=== PATIENT | female | born 1965 | race Caucasian/White ===

== ENCOUNTER → 2017-12-02 07:19 | Outpatient (CLI) | payer BC, SELFPAY ==
--- NOTE | 2017-12-02 07:25 | CT_ITS ---
STUDY: CT ABDOMEN AND PELVIS WITHOUT CONTRAST REASON FOR EXAM: Female, 52 years old. The patient has a history of retroperitoneal lymphadenopathy. Leg pain and swelling. Abdominal cramping. RADIATION DOSAGE (If Supplied By Facility): CTDIvol = ( 16.96 ) mGy, DLP = ( 826.46 ) mGycm TECHNIQUE: Transaxial images were obtained from the dome of the diaphragm to the symphysis pubis without oral contrast, and without intravenous contrast. Sagittal and coronal images were reconstructed. Individualized dose optimization techniques were used for this CT. COMPARISON: Comparison is made with prior study dated June 05, 2017. FINDINGS: Minimal increased markings in the lingular segment of the left upper lobe and right middle lobe suggestive of scarring. Coronary artery calcification. Normal liver. There are surgical clips in the gallbladder fossa consistent with a prior cholecystectomy. Normal spleen. Normal pancreas. Normal bilateral adrenal glands. Normal right kidney. Normal left kidney. Normal visualized stomach. Normal small intestine. Normal colon. The appendix is visualized and appears normal. There is scattered atherosclerotic calcification of the abdominal aorta, without a demonstrated aneurysm. Normal inferior vena cava. There is borderline retroperitoneal lymphadenopathy with enlarged nodes no greater than 10mm in the short axis diameter. Stable mild degree of increased markings in the mesenteric fat at the root of the mesentery. This is unchanged. Normal urinary bladder. There is a small umbilical hernia containing fat. There are mild degenerative changes of the visualized lumbar spine. CT/Abdomen/Pelvis without Cont IMPRESSION: Fatty infiltration of liver. Stable examination. Electronically Signed: Aamir Andres MD at 13:25 EDT Tel [phone], Service support ,
== END ==
PROVIDERS: Family Provider Nurse Practitioner; PCP Nurse Practitioner; Visit Provider Nurse Practitioner
DX: R59.0 Localized enlarged lymph nodes (principal)
CPT/HCPCS: 74176

== ENCOUNTER → 2018-05-18 16:43 | Outpatient (CLI) | payer BC, SELFPAY | PROVIDERS: Family Provider Nurse Practitioner; PCP Nurse Practitioner; Visit Provider Nurse Practitioner Gerontology | DX: M25.511 Pain in right shoulder (principal) | CPT/HCPCS: 73030 ==

== ENCOUNTER → 2018-07-07 12:22 | Outpatient (CLI) | payer BC, SELFPAY ==
--- NOTE | 2018-07-07 12:34 | EKG12_ITS ---
Test Reason : PRE OP Blood Pressure : / mmHG Vent. Rate : 070 BPM Atrial Rate : 070 BPM P-R Int : 180 ms QRS Dur : 078 ms QT Int : 408 ms P-R-T Axes : 054 010 057 degrees QTc Int : 440 ms Normal sinus rhythm with sinus arrhythmia Low voltage QRS Cannot rule out Anterior infarct , age undetermined Abnormal ECG Confirmed by AMEBR CROCKETT, ARLETH ([id number]), dictionary editor WILFRID MCKEON ([id number]) on 07/09/2018 11:35:29 AM Referred By: Simone Bajwa Confirmed By:ARLETH CLARK MD
[2018-07-07 13:16] LABS: Hematocrit 38.4 % (37-47); Hemoglobin 12.4 g/dl (12.0-15.0); Mean Corp Hgb Conc 32.3 g/gl (32-36); Mean Corpuscular Hgb 30.2 pg (27.0-32.0); Mean Corpuscular Volume 93.7 fL (81-99); Platelet Count 315 K/mm3 (150-450); RBC Distribution Width CV 14.2 % (11.6-14.6); RBC Distribution Width SD 48.4 fl (35.1-43.9); White Blood Count 7.5 K/mm3 (4.4-11.0)
[2018-07-07 13:21] LABS: Scan Indicated on CBC? Y/N NO
[2018-07-07 14:20] LABS: Anion Gap 8 (5-15); BUN 13 mg/dL (7-18); BUN/Creat Ratio 16.4 RATIO (10-20); Calcium,Total 9.6 mg/dL (8.5-10.1); Chloride 103 mmol/L (98-107); Creatinine, Serum 0.79 mg/dL (0.55-1.02); EST Glomerular Filtration Rate 80 mL/min (>60); Est Glom Filt Rate - Afr Amer 97 mL/min (>60); Glucose 82 mg/dL (74-106); Potassium 4.1 mmol/L (3.5-5.1); Sodium Level 141 mmol/L (136-145)
== END ==
PROVIDERS: Family Provider Nurse Practitioner; PCP Nurse Practitioner; Referring Provider Physician Assistant; Visit Provider Physician Assistant
DX: Z01.818 Encounter for other preprocedural examination (principal); Z01.810 Encounter for preprocedural cardiovascular examination
CPT/HCPCS: 36415; 80048; 85027; 93005

== ENCOUNTER → 2018-08-27 16:20 | Outpatient (CLI) | payer BC, SELFPAY | PROVIDERS: Family Provider Nurse Practitioner; PCP Nurse Practitioner; Referring Provider Nurse Practitioner Adult Health; Visit Provider Nurse Practitioner Adult Health | DX: R82.998 Other abnormal findings in urine (principal) | CPT/HCPCS: 87077; 87086; 87088 ==

== ENCOUNTER → 2018-11-04 17:35 | Outpatient (CLI) | payer BC, SELFPAY ==
--- NOTE | 2018-11-04 18:08 | RAD_ITS ---
STUDY: X-RAY CHEST REASON FOR EXAM: Female, 53 years old. Asthma, cough TECHNIQUE: Frontal and lateral views COMPARISON: August 08, 2014 FINDINGS: The lungs are expanded. There is a left upper lobe granuloma. Normal size heart. Normal mediastinum and jeremi. Normal visualized pulmonary arteries. Normal visualized aortic arch and descending thoracic aorta. Normal visualized thoracic spine. Normal visualized ribs, clavicles, and shoulders. There is no demonstrated abnormality of the visualized soft tissue structures of the upper abdomen. RAD/Chest PA and Lateral IMPRESSION: Stable left upper lobe granuloma. Electronically Signed: Rusty Wolff DO at 19:48 EST Tel [phone], Service support ,
== END ==
PROVIDERS: Family Provider Nurse Practitioner; PCP Nurse Practitioner; Referring Provider Internal Medicine; Visit Provider Internal Medicine
DX: R05 Cough (principal); J44.1 Chronic obstructive pulmonary disease with (acute) exacerbation
CPT/HCPCS: 71046; 87807

== ENCOUNTER 2018-11-13 08:37 | Emergency (ER) | payer BC, SELFPAY ==
[2018-11-13 08:38] VITALS: BP 136/79; PULSE 89; RESP 18; TEMP 37.2; O2SAT 99; BMI 39.6
--- NOTE | 2018-11-13 08:49 | CT_ITS ---
STUDY: CT MAXILLOFACIAL SINUSES REASON FOR EXAM: Female, 53 years old. Facial pain. History of prior sinus surgery. RADIATION DOSAGE (If Supplied By Facility): CTDIvol = ( 33.06 ) mGy, DLP = ( 809.06 ) mGycm TECHNIQUE: The patient was scanned in a multi detector CT scanner. High resolution axial imaging was performed without the administration of intravenous contrast material. Sagittal and coronal images were reconstructed. Individualized dose optimization techniques were used for this CT. COMPARISON: Comparison is made with prior study dated September 29, 2014. FINDINGS: FRONTAL SINUSES: Normal aeration, without mucosal inflammatory disease. ETHMOIDAL SINUSES: There is opacification of the posterior aspect of the right ethmoid sinus. Mild degree of mucosal thickening of the left ethmoid sinus and anterior aspect of the right ethmoid sinus. MAXILLARY SINUSES: Normal aeration, without mucosal inflammatory disease. There is evidence of prior resection of the medial sánchez of both maxillary sinuses. SPHENOIDAL SINUSES: Soft tissue prominence in the anterior aspect of the sphenoid sinus on the right side. There is patency of the bilateral maxillary infundibuli with normal uncinate processes, ethmoid bullae, and hiatus semilunaris. Normal bilateral middle turbinates. Normal bilateral inferior turbinates. Normal midline nasal septum. There is patency of the bilateral nasal airways. The visualized osseous structures are normal. The visualized bilateral orbital contents are normal. CT/Sinus/Facial Bone IMPRESSION: Partial opacification of the posterior aspect of the right ethmoid sinus. This has progressed as compared to prior study. This may represent mucosal retention cyst or mucocele. There is expansion of the sinus. Partial opacification of the anterior aspect of the right sphenoid sinus. Electronically Signed: Aamir Andres MD at 10:29 EST , Service support ,
--- NOTE | 2018-11-13 08:49 | EKG12_ITS ---
Test Reason : DYSRHYTHMIA Blood Pressure : / mmHG Vent. Rate : 077 BPM Atrial Rate : 077 BPM P-R Int : 176 ms QRS Dur : 084 ms QT Int : 370 ms P-R-T Axes : 017 046 044 degrees QTc Int : 418 ms Normal sinus rhythm Low voltage QRS Borderline ECG Confirmed by KISHAN CROCKETT, AMRIK ([id number]), editor magazine RICARDA PASCUAL ([id number]) on 11/17/2018 4:40:30 PM Referred By: Riri Bansal Confirmed By:AMRIK HOLLEY MD
[2018-11-13 09:17] LABS: Absolute Lymphocyte Count 2.51 X10^3/ul (0.83-4.51); Absolute Neutrophil Count 6.6 X10^3/uL (2.0-7.7); Basophil# 0.02 X10^3/uL; Basophil% 0.2 % (0-1); Eosinophil# 0.09 X10^3/uL; Eosinophils% 0.9 % (0-5); Hematocrit 40.3 % (37-47); Lymphocyte # 2.51 X10^3/ul (4.0); Lymphocyte % 25.5 % (19-41); Mean Corp Hgb Conc 32.3 g/gl (32-36); Mean Corpuscular Hgb 30.4 pg (27.0-32.0); Mean Corpuscular Volume 94.2 fL (81-99); Mean Platelet Vol. 9.9 fl (6.2-12.0); Monocyte# 0.51 X10^3/uL; Monocyte% 5.2 % (0-10); Neutrophil # 6.62 X10^3/uL (2.7-7.7); Neutrophil % 67.1 % (47-70); POSITIVE COUNT NO; POSITIVE DIFFERENTIAL NO; POSITIVE MORPHOLOGY NO; Platelet Count 275 K/mm3 (150-450); RBC Distribution Width SD 51.1 fl (35.1-43.9); Red Blood Count 4.28 M/mm3 (4.2-5.4); White Blood Count 9.9 K/mm3 (4.4-11.0)
[2018-11-13 09:24] LABS: Anion Gap 8 (5-15); BUN 16 mg/dL (7-18); BUN/Creat Ratio 18.7 RATIO (10-20); Calcium,Total 8.5 mg/dL (8.5-10.1); Chloride 106 mmol/L (98-107); Creatinine, Serum 0.85 mg/dL (0.55-1.02); EST Glomerular Filtration Rate 74 mL/min (>60); Est Glom Filt Rate - Afr Amer 89 mL/min (>60); Estimated Creatinine Clearance 62.59 ml/min; Glucose 91 mg/dL (74-106); Potassium 3.5 mmol/L (3.5-5.1); Sodium Level 141 mmol/L (136-145)
--- NOTE | 2018-11-13 09:28 | ED.DCSUM_ITS ---
- ER Visit Summary Date of Service: 11/13/18 Chief Complaint: Shortness of breath, facial pain History of Present Illness: The patient is a 53 F with history of asthma presents to the emergency department shortness of breath. Patient has been evaluated by her primary care multiple times over the past few weeks for this. She has been on prednisone and doxycycline. She feels like her symptoms are not improving. States especially at night, she will have worsening cough. She has had productive sputum. She had increasing nasal drainage and drainage in her posterior oropharynx. She has been scheduled to have an outpatient CT of her sinuses, but due to insurance reasons, cannot be improved. She states that her dyspnea has been worsening. She is been trying a nebulized treatments with little improvement. Physical Examination: Vital signs reviewed General: Well-nourished, well-developed Head: Normocephalic, atraumatic Eyes: Pupils equal and reactive, extraocular muscles intact Neck, supple, no lymphadenopathy Heart: Regular rate and rhythm Respiratory: No distress, clear bilaterally Abdomen: Soft, nontender, nondistended, no peritoneal signs Back: Nontender Extremities: Nontender, no edema, no cords Skin: Normal color no rash Neuro: Alert and oriented, no focal or lateralizing deficits Test Results: [] Emergency Department Course and Treatment: IV was established. Patient was given nebulized breathing treatments and steroids. Her chest x-ray was unremarkable. There is some calcified granulomatous disease, but no focal infiltrate. CT of the sinuses does demonstrate sinusitis. I did have a long discussion with the patient. I do feel this is likely the cause of her persistent drainage and cough. I am going to start her on Augmentin. She is tolerating this before in the past. At this time, she is not hypoxic, tachypnea, and has an otherwise unremarkable workup I do feel that she is safe for outpatient therapy. Treatment Plan: [] Disposition: Discharge Impression: 1. Acute sinusitis This note was generated with [employer] dictation software. It may contain incorrect words, spelling, and punctuation that were not noted in review of the chart prior to signing ED Disposition - Plan for ED Patient: Disposition: Home or Assisted Living Instructions: ED Upper Resp Infec Abx Tx Prescriptions: Ondansetron [Zofran Odt] 4 mg PO Q8H PRN PRN #10 tab PRN Reason: Nausea Amox/Clavulanate Tablet [Augmentin Tablet] 875 mg PO Q12H #20 tab Referrals: Polina Chow, CERTIFIED PHARMACY TECHNICIAN-C [Primary Care Provider] -
--- NOTE | 2018-11-13 09:30 | RAD_ITS ---
STUDY: X-RAY CHEST REASON FOR EXAM: Female, 53 years old. Cough and shortness of breath. TECHNIQUE: PA and lateral views of the chest. COMPARISON: Comparison is made with prior study dated November 04, 2018. FINDINGS: Calcified old granulomatous disease. Hyperinflation. Stable mild degree of increased markings in the lingular segment of the left upper lobe suggestive of a mild degree of scarring. There is no demonstrated pleural abnormality. Normal size heart. Normal mediastinum and jeremi. Normal visualized pulmonary arteries. Normal visualized aortic arch and descending thoracic aorta. Normal visualized thoracic spine. Normal visualized ribs, clavicles, and shoulders. There is no demonstrated abnormality of the visualized soft tissue structures of the upper abdomen. RAD/Chest PA and Lateral IMPRESSION: Findings suggestive of mild degree of scarring in the lingular segment of the left upper lobe. Electronically Signed: Aamir Andres MD at 10:30 EST , Service support ,
[2018-11-13 09:40] VITALS: PULSE 80; RESP 16
[2018-11-13] MEDS: Albuterol 2.5 MG/3 ML VIAL.NEB. INHALATION (09:43)
[2018-11-13] MEDS: Ipratropium/Albuterol Sulfate 3 ML AMPUL.NEB INHALATION (09:43)
[2018-11-13 11:19] VITALS: BP 118/73; PULSE 69; RESP 15; O2SAT 98
== END 2018-11-13 11:20 | disposition home or self-care (01) ==
LOC: ED 08:58
PROVIDERS: Emergency Provider Emergency Medicine; Family Provider Nurse Practitioner; PCP Nurse Practitioner
DX: J01.90 Acute sinusitis, unspecified (principal); R06.02 Shortness of breath
CPT/HCPCS: 70486; 71046; 80048; 85025; 93005; 94640; 99284; A4216

== ENCOUNTER → 2018-11-17 15:57 | Outpatient (CLI) | payer BC, SELFPAY ==
[2018-11-13 08:38] VITALS: BMI 39.6
[2018-11-17 18:15] LABS: M R Staph aureus DNA By PCR Negative (Negative); Probe Check PASS; Specimen Processing Control PASS
== END ==
PROVIDERS: Family Provider Nurse Practitioner; PCP Nurse Practitioner; Referring Provider Nurse Practitioner; Visit Provider Nurse Practitioner
DX: Z20.818 Contact with and (suspected) exposure to other bacterial communicable diseases (principal)
CPT/HCPCS: 87641

== ENCOUNTER → 2018-12-09 09:06 | Outpatient (CLI) | payer BC, SELFPAY ==
[2018-11-13 08:38] VITALS: BMI 39.6
[2018-12-09 10:10] LABS: Absolute Lymphocyte Count 2.55 X10^3/ul (0.83-4.51); Basophil# 0.06 X10^3/uL; Basophil% 0.7 % (0-1); Eosinophil# 0.23 X10^3/uL; Eosinophils% 2.7 % (0-5); Hematocrit 40.3 % (37-47); Hemoglobin 12.8 g/dl (12.0-15.0); Lymphocyte # 2.55 X10^3/ul (4.0); Lymphocyte % 30.1 % (19-41); Mean Corp Hgb Conc 31.8 g/gl (32-36); Mean Corpuscular Hgb 30.7 pg (27.0-32.0); Mean Corpuscular Volume 96.6 fL (81-99); Mean Platelet Vol. 9.9 fl (6.2-12.0); Monocyte# 0.56 X10^3/uL; Monocyte% 6.6 % (0-10); Neutrophil # 5.04 X10^3/uL (2.7-7.7); Neutrophil % 59.5 % (47-70); Platelet Count 356 K/mm3 (150-450); RBC Distribution Width CV 14.3 % (11.6-14.6); RBC Distribution Width SD 49.3 fl (35.1-43.9); Red Blood Count 4.17 M/mm3 (4.2-5.4); White Blood Count 8.5 K/mm3 (4.4-11.0)
[2018-12-09 10:12] LABS: POSITIVE COUNT NO; POSITIVE DIFFERENTIAL NO; POSITIVE MORPHOLOGY NO
== END ==
PROVIDERS: Family Provider Nurse Practitioner; PCP Nurse Practitioner; Referring Provider Specialist; Visit Provider Specialist
DX: J45.909 Unspecified asthma, uncomplicated (principal)
CPT/HCPCS: 36415; 85025

== ENCOUNTER 2019-02-09 17:32 | Emergency (ER) | payer BC, SELFPAY ==
[2019-02-09 17:32] VITALS: BP 129/83; PULSE 90; RESP 20; TEMP 36.3; O2SAT 95; BMI 39.8
--- NOTE | 2019-02-09 18:07 | ED.DCSUM_ITS ---
- ER Visit Summary Date of Service: 02/09/19 Chief Complaint: Cough of green sputum with asthma flare History of Present Illness: The patient is a 53 F history of asthma, depression and fibromyalgia. Patient states last several days she has had a cough of greenish sputum with shortness of breath and wheezing. Initially had a fever that is since resolved. Yesterday she saw her primary care provider nurse practitioner Polina Chow and was started on prednisone along with getting a steroid shot in the office along with a Z-Luis and is already on inhalers and aerosol treatments. She denies any chest pain. No hemoptysis. No history of DVT or PE. No risk factors. Physical Examination: Middle-aged female. Vital signs are stable afebrile pulse ox 95% room air no signs of hypoxia. No distress. HEENT exam unremarkable moist weeks membranes. Neck nontender no lymphadenopathy no JVD. Lungs dry cough. Currently minimal expiratory wheezes. No rales or rhonchi. Equal symmetrical. Decent and equal air movement. Heart regular rate and rhythm no murmur rate about 90. Abdomen soft nontender normal bowel sounds no peritoneal signs. Moving all 4 extremities. Calves are nontender without edema. Neurologically she is awake and alert. Test Results: Clinically I do not feel the patient has pneumonia. She and I discussed chest x-ray I do not feel is necessary and she is comfortable not getting one. Emergency Department Course and Treatment: Continue her current therapy. She is already on antibiotics Z-Luis. She is already on prednisone. She has an inhaler and nebulizer treatment at home. Treatment Plan: I will write her for albuterol treatments for her nebulizer as needed. Follow-up if not improving return if worse. Disposition: Discharge Impression: Asthmatic bronchitis This note was generated with [employer] dictation software. It may contain incorrect words, spelling, and punctuation that were not noted in review of the chart prior to signing ED Disposition - Plan for ED Patient: Referrals: Polina Chow, REGISTERED NURSE PRACTITIONER-C [Primary Care Provider] -
--- NOTE | 2019-02-09 18:07 | ED.DEP ---
ED Disposition - Plan for ED Patient: Disposition: Home or Assisted Living Instructions: ED Bronchitis Asthmatic Prescriptions: Albuterol Aerosols [Ventolin Aerosols] 2.5 mg INHALATION Q2H PRN PRN 5 Days #20 vial.neb. PRN Reason: Wheezing Referrals: Polina Chow, ROAD MACHINERY INSPECTOR-C [Primary Care Provider] - 1 Week if not improving Additional Instructions: Continue your current treatments. Inhaler 1 to 2 puffs every 2-4 hours as needed. Nebulizers every 1-2 hours as needed. Return if feeling worse. Continue your steroids and antibiotic. Should progressively start feeling better follow-up with your doctor if not improving in 1 week.
--- NOTE | 2019-02-09 18:11 | DCINST.ED_ITS ---
ED Disposition - Plan for ED Patient: Disposition: Home or Assisted Living Instructions: ED Bronchitis Asthmatic Prescriptions: Albuterol Aerosols [Ventolin Aerosols] 2.5 mg INHALATION Q2H PRN PRN 5 Days #20 vial.neb. PRN Reason: Wheezing Referrals: Polina Chow, SEO EXECUTIVE-C [Primary Care Provider] - 1 Week if not improving Additional Instructions: Continue your current treatments. Inhaler 1 to 2 puffs every 2-4 hours as needed. Nebulizers every 1-2 hours as needed. Return if feeling worse. Continue your steroids and antibiotic. Should progressively start feeling better follow-up with your doctor if not improving in 1 week.
[2019-02-09 18:17] VITALS: O2SAT 96
== END 2019-02-09 18:17 | disposition home or self-care (01) ==
LOC: ED 18:16
PROVIDERS: Emergency Provider Emergency Medicine; Family Provider Nurse Practitioner; PCP Nurse Practitioner
DX: J45.909 Unspecified asthma, uncomplicated (principal); F32.9 Major depressive disorder, single episode, unspecified; M79.7 Fibromyalgia; Z79.899 Other long term (current) drug therapy
CPT/HCPCS: 99282

== ENCOUNTER 2019-06-22 17:13 | Emergency (ER) | payer BC, SELFPAY ==
[2019-06-22 17:13] VITALS: BP 161/100; PULSE 71; RESP 16; TEMP 36.6; O2SAT 99; BMI 39.9
--- NOTE | 2019-06-22 17:36 | ED.VIS.GEN ---
History of Present Illness Chief Complaint: Back Detail of Chief Complaint: Back pain Informant: Patient Onset: Days Current Severity: Moderate Maximum Severity: Moderate Narrative: Patient presents with low back pain. She states she woke last Friday morning, 4 days ago, with low back pain. It would intermittently radiate down the lateral portion of her thighs. It is worse with movement. She does note recent foot pain and she believes her gait has been altered because of this. She believes this caused her back pain. There was no fall or direct trauma. She reports having a similar episode of back pain 2 years ago. Imaging at that time revealed stenosis and arthritis. She went through physical therapy at that time. She is been trying to do some of her physical therapy exercises the past couple days without improvement. She has tried Tylenol and ibuprofen at home. She did take 1 tab of oxycodone that she had leftover. Past Medical History - Allergies and Home Meds Allergies/Adverse Reactions: Allergies No Known Allergies Allergy (Verified 06/22/19 17:14) Primary Care Physician: Polina Chow NP-C [Primary Care Provider] - 1 Week if not improving Surgical History: cholecystectomy, tonsillectomy, fusion in the leg Smoking Status: Former smoker Review of Systems General: Denies: Chills, Fever Eyes: Denies: Visual changes - bilaterally ENT: Denies: Bilateral ear pain Cardiovascular: Denies: Chest pain Respiratory: Denies: Dyspnea Gastrointestinal: Denies: Abdominal pain, Nausea, Vomiting, Diarrhea Genitourinary: Denies: Dysuria, Frequency Musculoskeletal: Reports: Back pain, Extremity Pain - Right foot pain Neurological: Denies: Parasthesia Hematologic: Denies: Easy bruising, Easy bleeding Allergy: Denies: Uticaria Physical Exam Vital Signs/Narrative: Vital Signs Temp Pulse Resp BP Pulse Ox 06/22/19 17:13 97.8 F 71 16 161/100 H 99 Inital Vital Signs reviewed: Yes General: Well nourished, Well developed Head: Normocephalic ENT: Moist mucous membranes Neck: Supple Cardiovascular: Regular rate, Regular rhythm Respiratory: No distress, CTA bilaterally Abdomen: Soft, Nontender Back: - - Patient has no midline thoracic or lumbar tenderness. She has mild tenderness in the low lumbar paraspinals and over the sacrum. No overlying skin changes. Normal strength and sensation is noted. Strong distal pulses noted throughout. Skin: Normal color, No rash Neurological: Alert, Oriented x3, Normal Strength, Normal Sensation Psychological: Normal affect Diagnostic/Tx/Re-eval - Medical Decision Making Patient was given naproxen, Flexeril, and [place] here. On repeat evaluation she reports some improvement in her symptoms. She was reevaluated 1 hour after the p.o. meds. I advised her that they would continue to become more effective. She is given prescriptions for the same. She was encouraged to try to get the pain under control initially and then follow-up with her physical therapy exercises. If symptoms do not improve she may need to be evaluated by physical therapy again. She voices understanding and agreement. Impression: Back strain with paraspinal spasm ED Disposition - Plan for ED Patient: Disposition: Home or Assisted Living Diagnosis: Back pain Instructions: Back Sprain/Strain Prescriptions: cycloBENZAPRine HCl [Flexeril] 10 mg PO TID PRN #20 tab PRN Reason: Muscle Spasm Prescription Printed Naproxen [Naprosyn] 500 mg PO BID PRN #14 tab PRN Reason: Pain Score 1-10/10 Prescription Printed Hydrocodone Bitart/Apap 5-325 [[place] 5MG-325MG] 1 tab PO Q6H PRN PRN 3 Days #10 tab PRN Reason: Pain Prescription Printed Referrals: Polina Chow NP-C [Primary Care Provider] - 1 Week if not improving
[2019-06-22] MEDS: cycloBENZAPRine HCl 10 MG Tablet PO (17:42)
[2019-06-22] MEDS: HYDROcodone Bitartrate/Apap 5/325 Tablet PO (17:42)
[2019-06-22] MEDS: Naproxen 500 MG Tablet PO (17:42)
== END 2019-06-22 19:13 | disposition home or self-care (01) ==
PROVIDERS: Emergency Provider Emergency Medicine; Family Provider Nurse Practitioner; PCP Nurse Practitioner
DX: S39.012A Strain of muscle, fascia and tendon of lower back, initial encounter (principal); M62.830 Muscle spasm of back; X58.XXXA Exposure to other specified factors, initial encounter; Y93.9 Activity, unspecified; Y92.9 Unspecified place or not applicable; Z87.891 Personal history of nicotine dependence
CPT/HCPCS: 99283

== ENCOUNTER → 2019-10-01 13:45 | Outpatient (CLI) | payer BC, SELFPAY ==
--- NOTE | 2019-10-01 13:48 | RAD_ITS ---
HISTORY: SINUS PRESSURE RIGHT MORE THAN LEFT. HX OF ASTHMA EXAMINATION/TECHNIQUE: XR Sinuses Paranasal Min 3 Views: COMPARISON: CT scan of the facial bones from November 13, 2018 FINDINGS: There is no significant mucosal thickening. There are no air-fluid levels. The regional bones are grossly intact. Fluid collection within the right ethmoid air cells seen on the CT scan is not identified. Maxillary sinus antrectomies are not perceived that were seen on the CT scan RAD/Sinuses min 3 Views IMPRESSION: Negative sinus series. at 0613 Reported and signed by: Demetrio Tyler MD Electronically Signed: Demetrio Tyler MD at 6:12 EST Tel , Service support ,
== END ==
PROVIDERS: Family Provider Nurse Practitioner; PCP Nurse Practitioner; Referring Provider Nurse Practitioner; Visit Provider Nurse Practitioner
DX: R05 Cough (principal)
CPT/HCPCS: 70220

== ENCOUNTER → 2019-10-19 13:46 | Outpatient (CLI) | payer BC, SELFPAY ==
--- NOTE | 2019-10-19 13:51 | RAD_ITS ---
STUDY: X-RAY CHEST REASON FOR EXAM: Female, 54 years old. Cough. History of asthma. TECHNIQUE: PA and lateral views of the chest. COMPARISON: None. FINDINGS: The lungs are clear and expanded. There is a stable calcified granuloma right upper lobe. There is no demonstrated pleural abnormality. Normal size heart. Normal mediastinum . There is prominent dense jeremi suggesting calcified lymph nodes. Normal visualized pulmonary arteries. Normal visualized aortic arch and descending thoracic aorta. There are diffuse degenerative changes of the visualized thoracic spine. Normal visualized ribs, clavicles, and shoulders. There is no demonstrated abnormality of the visualized soft tissue structures of the upper abdomen. RAD/Chest PA and Lateral IMPRESSION: Old granulomatous disease without acute cardiopulmonary process or major interval changes Electronically Signed: Napoleon Castillo DO at 19:07 EST Tel [phone], Service support ,
== END ==
PROVIDERS: PCP Nurse Practitioner; Referring Provider Specialist; Visit Provider Specialist
DX: R05 Cough (principal)
CPT/HCPCS: 71046

== ENCOUNTER 2019-12-10 12:00 | Outpatient (RCR) | payer BC, SELFPAY ==
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
--- NOTE | 2020-06-15 15:19 | HP.PT.NRP ---
MITRA DELANEY was seen in my office for initial evaluation on 12/01/19. The following Plan of Care was established for this patient: Initial Frequency: 2-3x /Week Initial Duration: 4-6 Weeks Patient/Client Instruction: Educate patient on: Condition, Plan of Care, Risk Factors, Benefits of Fitness Program For the Purpose of:: To improve self management Therapeutic Exercise to Include: Strength training, Body mechanics, Postural training, Flexibilty training, Neuromotor development, In an aquatic setting, Dynamic Lumbar Stabilization For the Purpose of:: To decrease pain, To increase ROM, To improve muscle performance and motor function, To increase tolerance to activity/condition/position, To improve ability of physical actions for home/community/work/leisure This patient was last seen in our office . Pertinent comments regarding their Physical therapy will appear below: This patient has not returned to Physical Therapy and is appropriate to return to MD for further follow-up as needed. At this point I will be discontinuing this patient from physical therapy. I would be happy to see this patient again in the future if found appropriate by the physician. Thank you! Sabine Phelps, PT, Cert MDT
== END 2019-12-10 19:00 | disposition home or self-care (01) ==
LOC: PT 12:00
PROVIDERS: PCP Nurse Practitioner; Referring Provider Nurse Practitioner Family
DX: M79.7 Fibromyalgia (principal); M51.17 Intervertebral disc disorders with radiculopathy, lumbosacral region; M47.27 Other spondylosis with radiculopathy, lumbosacral region; M48.07 Spinal stenosis, lumbosacral region; M51.26 Other intervertebral disc displacement, lumbar region; M46.96 Unspecified inflammatory spondylopathy, lumbar region
CPT/HCPCS: 97112; 97113; 97162

== ENCOUNTER 2020-04-19 02:59 | Emergency (ER) | payer BC, SELFPAY ==
[2020-04-19 03:02] VITALS: BP 137/80; PULSE 75; RESP 16; TEMP 36.6; O2SAT 98; BMI 40.5
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
[2020-04-19] MEDS: predniSONE 20 MG Tablet 40 MG PO (03:27)
[2020-04-19] MEDS: DiphenhydrAMINE 25 MG Capsule 50 MG PO (03:27)
== END 2020-04-19 03:51 | disposition home or self-care (01) ==
LOC: ED 03:25
PROVIDERS: Emergency Provider Emergency Medicine; PCP Nurse Practitioner
DX: L50.6 Contact urticaria (principal); E03.9 Hypothyroidism, unspecified; F32.9 Major depressive disorder, single episode, unspecified; M79.7 Fibromyalgia; K21.9 Gastro-esophageal reflux disease without esophagitis; M19.90 Unspecified osteoarthritis, unspecified site; J45.909 Unspecified asthma, uncomplicated; Z79.899 Other long term (current) drug therapy
CPT/HCPCS: 99283

== ENCOUNTER 2020-04-22 16:07 | Emergency (ER) | payer BC, SELFPAY ==
[2020-04-22 16:07] VITALS: BP 159/109; PULSE 80; RESP 17; TEMP 36.2; O2SAT 95; BMI 38.9
--- NOTE | 2020-04-22 16:26 | ED.DCSUM_ITS ---
- ER Visit Summary Date of Service: 04/22/20 Chief Complaint: Headache History of Present Illness: The patient is a 54 F with a headache that started when she woke up today. The pain is over the right side of her head. Worse with light and noise. The pain is severe. History of the same with migraines. She took her home medication with no relief. Denies trauma or any inciting factors. Denies any new or different symptoms. Physical Examination: Afebrile and vital signs unremarkable. Alert and oriented. Tearful. HEENT exam unremarkable. Neck shows good range of motion. Heart regular. Lungs clear. Moves all extremities with good strength and sensation. Test Results: None indicated Emergency Department Course and Treatment: Patient was treated with Compazine, Benadryl, and Toradol. On reevaluation, pain is 5 out of 10. Patient would like to go home. She climbed further meds or further observation in the ED. Return for any new or worsening issues. Treatment Plan: As above Disposition: Discharge Impression: Headache This note was generated with [employer] dictation software. It may contain incorrect words, spelling, and punctuation that were not noted in review of the chart prior to signing ED Disposition - Plan for ED Patient: Referrals: Polina Chow, KRISS-C [Primary Care Provider] -
[2020-04-22] MEDS: proCHLORPERazine 10 MG/2 ML Vial IV (16:42)
[2020-04-22] MEDS: Ketorolac 30 MG/ML Syringe IV (16:42)
[2020-04-22] MEDS: DiphenhydrAMINE 50 MG/ML Syringe IV (16:43)
--- NOTE | 2020-04-22 17:08 | ED.DEP ---
ED Disposition - Plan for ED Patient: Instructions: ED, Migraine (Classical) Referrals: Polina Chow, KRISS-C [Primary Care Provider] -
== END 2020-04-22 17:17 | disposition home or self-care (01) ==
LOC: ED 16:59
PROVIDERS: Emergency Provider Emergency Medicine; PCP Nurse Practitioner
DX: G43.909 Migraine, unspecified, not intractable, without status migrainosus (principal); K21.9 Gastro-esophageal reflux disease without esophagitis; M79.7 Fibromyalgia; Z79.899 Other long term (current) drug therapy
CPT/HCPCS: 96374; 96375; 99283; A4216

== ENCOUNTER 2020-04-26 14:11 | Emergency (ER) | payer BC, SELFPAY ==
[2020-04-26 14:12] VITALS: BP 126/72; PULSE 75; RESP 12; TEMP 35.8; O2SAT 100; BMI 40.7
--- NOTE | 2020-04-26 14:14 | EKG12_ITS ---
Test Reason : TRAUMA Blood Pressure : / mmHG Vent. Rate : 074 BPM Atrial Rate : 074 BPM P-R Int : 172 ms QRS Dur : 084 ms QT Int : 406 ms P-R-T Axes : 025 025 051 degrees QTc Int : 450 ms Normal sinus rhythm Normal ECG Confirmed by TIFFANIE CROCKETT, LEI ([id number]), online editor LARA VELA ([id number]) on 05/01/2020 9:26:28 AM Referred By: ALEX Confirmed By:ANTONIO MORENO MD
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
[2020-04-26 14:18] VITALS: BP 126/74; PULSE 74; RESP 12; O2SAT 100
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
--- NOTE | 2020-04-26 14:34 | NURSING ---
1419 CALLED [facility] ABOUT TRANSFER. VIRGEN TALKED TO DR JOHNSON
--- NOTE | 2020-04-26 14:34 | NURSING ---
1431 [facility] ETA IS 5 MIN
[2020-04-26 14:40] LABS: Absolute Lymphocyte Count 3.54 X10^3/uL (0.83-4.51); Absolute Neutrophil Count 6.6 X10^3/uL (2.0-7.7); Basophil# 0.04 X10^3/uL; Basophil% 0.4 % (0-1); Eosinophil# 0.38 X10^3/uL; Eosinophils% 3.4 % (0-5); Hematocrit 37.9 % (37-47); Hemoglobin 12.3 g/dL (12.0-15.0); Lymphocyte # 3.54 X10^3/ul (4.0); Lymphocyte % 31.6 % (19-41); Mean Corp Hgb Conc 32.5 g/dL (32-36); Mean Corpuscular Hgb 30.6 pg (27.0-32.0); Mean Corpuscular Volume 94.3 fL (81-99); Mean Platelet Vol. 10.4 fl (6.2-12.0); Monocyte# 0.65 X10^3/uL; Monocyte% 5.8 % (0-10); NRBC Flagged by Analyzer 0 % (0-5); Neutrophil # 6.55 X10^3/uL (2.7-7.7); Neutrophil % 58.3 % (47-70); Platelet Count 286 K/mm3 (150-450); RBC Distribution Width CV 13.5 % (11.6-14.6); RBC Distribution Width SD 46.5 fl (35.1-43.9); Red Blood Count 4.02 M/mm3 (4.2-5.4); White Blood Count 11.2 K/mm3 (4.4-11.0)
[2020-04-26 14:41] VITALS: BP 110/83
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
[2020-04-26] MEDS: Diphth,Pertuss(Acell),Tet Vac 0.5 ML Vial IM (14:48)
[2020-04-26 14:50] LABS: Anion Gap 5 (5-15); BUN 14 mg/dL (7-18); BUN/Creat Ratio 16.1 RATIO (10-20); Calcium,Total 8.6 mg/dL (8.5-10.1); Chloride 110 mmol/L (98-107); Creatinine, Serum 0.87 mg/dL (0.55-1.02); EST Glomerular Filtration Rate 72 mL/min (>60); Est Glom Filt Rate - Afr Amer 87 mL/min (>60); Estimated Creatinine Clearance 65.74 ml/min; Glucose 107 mg/dL (74-106); Potassium 3.7 mmol/L (3.5-5.1); Sodium Level 140 mmol/L (136-145)
--- NOTE | 2020-04-26 14:55 | CM.ED ---
SOCIAL WORK Daughter in department. Updated on patient's status and transfer to [facility]. Daughter escorted to patient's room. Support provided.
[2020-04-26 14:56] LABS: International Normalized Ratio 1.1; Prothrombin Time (Protime)PT. 13.4 SECONDS (11.7-14.9)
[2020-04-26 14:57] LABS: Partial Thromboplast Time 23.1 Seconds (24.1-36.2)
[2020-04-26 15:13] VITALS: BP 128/79; PULSE 79; RESP 14; O2SAT 100
== END 2020-04-26 15:14 | disposition home or self-care (01) ==
LOC: ED 14:16
PROVIDERS: Emergency Provider Emergency Medicine; PCP Nurse Practitioner
DX: S36.892A Contusion of other intra-abdominal organs, initial encounter (principal); S00.03XA Contusion of scalp, initial encounter; V86.55XA Driver of 3- or 4- wheeled all-terrain vehicle (ATV) injured in nontraffic accident, initial encounter; Y93.9 Activity, unspecified; Y92.9 Unspecified place or not applicable; E66.9 Obesity, unspecified; J45.40 Moderate persistent asthma, uncomplicated; F32.9 Major depressive disorder, single episode, unspecified; M79.7 Fibromyalgia; K21.9 Gastro-esophageal reflux disease without esophagitis; E03.9 Hypothyroidism, unspecified; M19.90 Unspecified osteoarthritis, unspecified site; K57.90 Diverticulosis of intestine, part unspecified, without perforation or abscess without bleeding; Z79.899 Other long term (current) drug therapy
CPT/HCPCS: 51702; 70450; 71260; 72125; 74177; 80048; 80320; 85025; 85610; 85730; 90715; 93005; 96374; 99285; J7030; Q9967; G0480

== ENCOUNTER → 2020-07-05 | Outpatient (CLI) | payer BC, SELFPAY ==
[2020-07-05 10:42] VITALS: BMI 38.3
[2020-07-05 13:21] LABS: Bacteria 0 SEEN /hpf (None Seen); Mucous, Urine 0 SEEN /hpf (<or=2+); Red Blood Cells-Urine 0 SEEN /hpf (0-5); Squamous Epithelial Cells - UA 0 SEEN /hpf (5-10)
[2020-07-05 13:28] LABS: Color, Urine Yellow (Yellow); Glucose, Dipstick Normal (Normal); Ketone-Dipstick Negative (Negative); Leukocyte Esterase-Dipstick 500 /ul (Negative); Nitrite-Dipstick Positive (Negative); Occult Blood-Urine 250 /ul (Negative); Protein-Dipstick Negative (Negative); Specific Gravity, Urine 1.005 (1.002-1.030); Urine Clarity Clear (Clear); Urine Urobilinogen 4 mg/dl (Normal); Urine pH 6.5 (5.0 - 8.0)
[2020-07-05 13:29] LABS: Urine Bilirubin Dipstick 1 mg/dL (Negative)
[2020-07-05 13:35] LABS: White Blood Cells 10-25 SEEN /hpf (0-5)
== END | disposition home or self-care (01) ==
LOC: LABSPEC 13:03
PROVIDERS: PCP Nurse Practitioner; Visit Provider Physician Assistant
DX: R30.0 Dysuria (principal)
CPT/HCPCS: 81001; 87086

== ENCOUNTER → 2020-11-02 08:19 | Outpatient (CLI) | payer BC, SELFPAY ==
[2020-11-02 07:59] VITALS: BMI 40.4
[2020-11-02 08:26] LABS: Bacteria 0 SEEN /hpf (None Seen); Mucous, Urine 0 SEEN /hpf (<or=2+)
[2020-11-02 08:40] LABS: Color, Urine Yellow (Yellow); Glucose, Dipstick Normal (Normal); Ketone-Dipstick Negative (Negative); Leukocyte Esterase-Dipstick 25 /ul (Negative); Nitrite-Dipstick Negative (Negative); Occult Blood-Urine 10 /ul (Negative); Protein-Dipstick Negative (Negative); Specific Gravity, Urine 1.015 (1.002-1.030); Urine Bilirubin Dipstick Negative (Negative); Urine Clarity Sl. Cloudy (Clear); Urine Urobilinogen Normal (Normal)
[2020-11-02 08:43] LABS: Erythrocyte Sedimentation Rate 15 mm/hr (0-30)
[2020-11-02 08:47] LABS: Absolute Lymphocyte Count 3.01 X10^3/uL (0.83-4.51); Absolute Neutrophil Count 5.6 X10^3/uL (2.0-7.7); Basophil# 0.09 X10^3/uL; Basophil% 0.9 % (0-1); Eosinophil# 0.32 X10^3/uL; Eosinophils% 3.3 % (0-5); Hematocrit 37.8 % (37-47); Hemoglobin 12.2 g/dL (12.0-15.0); Lymphocyte # 3.01 X10^3/ul (4.0); Lymphocyte % 31.4 % (19-41); Mean Corp Hgb Conc 32.3 g/dL (32-36); Mean Corpuscular Hgb 29.7 pg (27.0-32.0); Mean Platelet Vol. 10.2 fl (6.2-12.0); Monocyte# 0.55 X10^3/uL; Monocyte% 5.7 % (0-10); NRBC Flagged by Analyzer 0 % (0-5); Neutrophil # 5.59 X10^3/uL (2.7-7.7); Neutrophil % 58.3 % (47-70); Platelet Count 351 K/mm3 (150-450); RBC Distribution Width CV 14.6 % (11.6-14.6); RBC Distribution Width SD 49.5 fl (35.1-43.9); Red Blood Cells-Urine 0-5 SEEN /hpf (0-5); Red Blood Count 4.11 M/mm3 (4.2-5.4); Squamous Epithelial Cells - UA 0-5 SEEN /hpf (5-10); White Blood Cells 0-5 SEEN /hpf (0-5); White Blood Count 9.6 K/mm3 (4.4-11.0)
[2020-11-02 08:56] LABS: ALB/GLOB Ratio 0.9 RATIO (0.9-2.4); AST(SGOT) 36 U/L (15-37); Alanine Aminotransfer ALT/SGPT 60 U/L (13-56); Albumin, Serum 3.6 g/dL (3.2-5.0); Alkaline Phosphatase 89 U/L (45-117); Amylase 92 U/L (25-115); Anion Gap 4 (5-15); BUN 14 mg/dL (7-18); BUN/Creat Ratio 17.2 RATIO (10-20); Calcium,Total 9.1 mg/dL (8.5-10.1); Chloride 105 mmol/L (98-107); Creatinine, Serum 0.82 mg/dL (0.55-1.02); EST Glomerular Filtration Rate 77 mL/min (>60); Est Glom Filt Rate - Afr Amer 93 mL/min (>60); Glucose 92 mg/dL (74-106); Lipase 142 U/L (73-393); Potassium 4.1 mmol/L (3.5-5.1); Protein, Total 7.6 g/dL (6.4-8.2); Sodium Level 138 mmol/L (136-145)
== END ==
PROVIDERS: PCP Nurse Practitioner; Referring Provider Surgery; Visit Provider Surgery
DX: R10.9 Unspecified abdominal pain (principal)
CPT/HCPCS: 36415; 80053; 81001; 82150; 83690; 85025; 85652; 87086; 87088

== ENCOUNTER → 2020-11-09 07:33 | Outpatient (CLI) | payer BC, SELFPAY ==
[2020-11-02 07:59] VITALS: BMI 40.4
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
== END ==
PROVIDERS: PCP Nurse Practitioner; Referring Provider Surgery; Visit Provider Surgery
DX: R10.9 Unspecified abdominal pain (principal)
CPT/HCPCS: 74177; Q9967

== ENCOUNTER 2020-11-17 08:50 | Day surgery (SDC) | payer BC, SELFPAY ==
[2020-11-13 07:57] VITALS: BMI 40.4
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
[2020-11-17 09:17] VITALS: BP 113/71; PULSE 77; RESP 16; TEMP 36.7; O2SAT 96; BMI 39.6
[2020-11-17] MEDS: Lactated Ringers 1,000 ML 100 ML IV (09:17)
[2020-11-17 10:01] LABS: Thyroid Stim Hormone (TSH) 1.39 uIU/mL (0.358-3.74)
[2020-11-17 10:34] VITALS: BP 105/64; BP 113/71; PULSE 94; RESP 16; TEMP 36.1; O2SAT 100
[2020-11-17 10:35] VITALS: BP 109/68; BP 113/71; PULSE 90; RESP 16; O2SAT 99
--- NOTE | 2020-11-17 10:37 | OP.CCLET_ITS ---
11/17/2020 Polina Chow, KRISS [address] [place] [address] Re : Colonoscopy procedure for Karely Sidhu Dear Ms. Chow This procedure was performed on Tuesday, November 17, 2020. My impressions and recommendations are as follows: Impressions : - Hemorrhoids found on perianal exam. - Diverticulosis in the sigmoid colon. - Patent functional end-to-end ileo-colonic anastomosis, characterized by inflammation and an intact staple line. Suture granuloma, small with some inflammation and small amount of purulence - The examination was otherwise normal. - No specimens collected. Recommendations : - Discharge patient to home. - Resume previous diet. - Continue present medications. - Repeat colonoscopy in 10 years for screening purposes. My findings are described in the full procedure note, which is enclosed. If I can be of further assistance, please feel free to contact me at Doctor phone number(s): Work: . Sincerely, Jose Higginbotham MD 11/17/2020 10:36:49 AM This report has been signed electronically.
--- NOTE | 2020-11-17 10:37 | OP.COLON_ITS ---
Patient Name: Karely Sidhu Procedure Date: 11/17/2020 10:06 AM Date of : 1965 Age: 55 Procedure: Colonoscopy Indications: Screening for colorectal malignant neoplasm Providers: Jose Higginbotham MD Referring MD: Polina Chow NP Medicines: See the Anesthesia note for documentation of the administered medications Patient Profile: Last Colonoscopy: none. The patient's first colonoscopy is today. Complications: No immediate complications. Procedure: Pre-Anesthesia Assessment: - Prior to the procedure, a History and Physical was performed, and patient medications and allergies were reviewed. The patient's tolerance of previous anesthesia was also reviewed. The risks and benefits of the procedure and the sedation options and risks were discussed with the patient. All questions were answered, and informed consent was obtained. Prior Anticoagulants: The patient has taken no previous anticoagulant or antiplatelet agents. ASA Grade Assessment: III - A patient with severe systemic disease. After reviewing the risks and benefits, the patient was deemed in satisfactory condition to undergo the procedure. After I obtained informed consent, the scope was passed under direct vision. Throughout the procedure, the patient's blood pressure, pulse, and oxygen saturations were monitored continuously. The colonoscope was introduced through the anus and advanced to the ileocolonic anastomosis. The colonoscopy was somewhat difficult due to a tortuous colon. Successful completion of the procedure was aided by applying abdominal pressure. The patient tolerated the procedure well. The quality of the bowel preparation was adequate to identify polyps. Ileocolonic anastomosis were photographed. Scope In: 10:16:10 AM Scope Withdrawal Time 0 hours 8 minutes 6 seconds Scope Out: 10:30:08 AM Total Procedure Duration Time 0 hours 13 minutes 58 seconds Findings: Hemorrhoids were found on perianal exam. Scattered diverticula were found in the sigmoid colon. There was evidence of a prior functional end-to-end ileo-colonic anastomosis in the proximal ascending colon. This was patent and was characterized by inflammation and an intact staple line. The exam was otherwise without abnormality. Impression: - Hemorrhoids found on perianal exam. - Diverticulosis in the sigmoid colon. - Patent functional end-to-end ileo-colonic anastomosis, characterized by inflammation and an intact staple line. Suture granuloma, small with some inflammation and small amount of purulence - The examination was otherwise normal. - No specimens collected. Recommendation: - Discharge patient to home. - Resume previous diet. - Continue present medications. - Repeat colonoscopy in 10 years for screening purposes. Procedure Code(s): --- Professional --- 04836, Colonoscopy, flexible; diagnostic, including collection of specimen(s) by brushing or washing, when performed (separate procedure) Diagnosis Code(s): --- Professional --- Z12.11, Encounter for screening for malignant neoplasm of colon K64.9, Unspecified hemorrhoids Z98.0, Intestinal bypass and anastomosis status K57.30, Diverticulosis of large intestine without perforation or abscess without bleeding CPT copyright 2017 [employer]. All rights reserved. The codes documented in this report are preliminary and upon director investor relations review may be revised to meet current compliance requirements. Jose Higginbotham MD 11/17/2020 10:36:49 AM This report has been signed electronically. Number of Addenda: 0 Note Initiated On: 11/17/2020 10:06 AM
[2020-11-17 10:40] VITALS: BP 113/71; BP 99/67; PULSE 88; RESP 16; O2SAT 100
[2020-11-17 10:46] VITALS: BP 113/71; BP 95/84; PULSE 82; RESP 16; TEMP 36.4; O2SAT 100
[2020-11-17 11:16] VITALS: BP 113/71
== END 2020-11-17 11:17 | disposition home or self-care (01) ==
LOC: EN 08:50 → AC 08:51
PROVIDERS: Anesthesiology; PCP Nurse Practitioner; Referring Provider Nurse Practitioner; Visit Provider Surgery
PROC: 0DJD8ZZ Inspection of Lower Intestinal Tract, Via Natural or Artificial Opening Endoscopic (ICD-10-PCS; CPT 45378; principal; 2020-11-17 09:55)
DX: Z12.11 Encounter for screening for malignant neoplasm of colon (principal); Z98.0 Intestinal bypass and anastomosis status; K64.9 Unspecified hemorrhoids; K57.30 Diverticulosis of large intestine without perforation or abscess without bleeding; K43.2 Incisional hernia without obstruction or gangrene; M79.7 Fibromyalgia; K21.9 Gastro-esophageal reflux disease without esophagitis; E66.9 Obesity, unspecified; E03.9 Hypothyroidism, unspecified; F32.9 Major depressive disorder, single episode, unspecified; E06.9 Thyroiditis, unspecified; M19.90 Unspecified osteoarthritis, unspecified site; J45.909 Unspecified asthma, uncomplicated; Z78.0 Asymptomatic menopausal state; Z86.16 Personal history of COVID-19; Z90.49 Acquired absence of other specified parts of digestive tract; Z79.899 Other long term (current) drug therapy
CPT/HCPCS: 45378; 84443; J7120; J2405

== ENCOUNTER 2020-11-28 10:07 | Observation (INO) | payer BC, SELFPAY ==
[2020-11-13 07:57] VITALS: BMI 40.4
--- NOTE | 2020-11-21 09:10 | EKG12_ITS ---
Test Reason : PREOP Blood Pressure : / mmHG Vent. Rate : 074 BPM Atrial Rate : 074 BPM P-R Int : 176 ms QRS Dur : 078 ms QT Int : 368 ms P-R-T Axes : 037 027 067 degrees QTc Int : 408 ms Normal sinus rhythm Low voltage QRS Borderline ECG Confirmed by AMBER CROCKETT, ARLETH ([id number]), makeup editor LARA VELA ([id number]) on 11/22/2020 8:59:29 AM Referred By: Jose Higginbotham Confirmed By:ARLETH CLARK MD
[2020-11-28] VITALS (13 sets, daily range): BP systolic 115–148; BP diastolic 70–100; PULSE 63–79; RESP 16–18; TEMP 36.3–36.8; O2SAT 95–100; BMI 40.1
--- NOTE | 2020-11-28 | HERN_PTH ---
PATIENT: MITRA DELANEY LOC: MS3 U#:[id number] AGE/SX: 55/F ROOM: MS311 RE11/28/[address]: Dr. Jose Higginbotham MD : 1965 BED: 1 DIS: 11/29/2020 SPEC #: [id number] RECD: 11/28/20 11:56 STATUS: SLY YOSELIN #: [id number] SELIN: 11/28/20 00:[address]: Jose Higginbotham DEPT: SURGICAL PATHOLOGY RECD BY: Luis Fuentes ENTERED: 11/28/20 11:57 SP TYPE: Hernia OTHR DR: Polina Chow, DIP BRAZIER-C Tissues: HERNIA Procedures: Surgery Specimen Level II HEADER OPERATION: Open laparoscopic ventral/incisional hernia repair with mesh PRE-OP DIAGNOSIS: Ventral incisional hernia TISSUE SUBMITTED: Ventral incisional hernia sac MICROSCOPIC DIAGNOSIS Ventral incisional hernia sac: Pieces of fibroadipose and fibroconnective tissue, consistent with hernia sac. ANT:gavin 11/29/2020 MICROSCOPIC DESCRIPTION Slides are reviewed. GROSS DESCRIPTION Received in fixative is one container labeled with the patient's name and designated ventral incisional hernia sac. The specimen consists of two pieces of light cesar soft tissue that in aggregate measure 6 x 3 x 1 cm. The specimen is totally submitted in one cassette. / ANT:gavin 11/28/20 TC:5 CPT: 43885
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
--- NOTE | 2020-11-28 06:17 | DCINST_ITS ---
<Jose Higginbotham - Last Filed: 11/28/20 06:17> Discharge Diet: Light diet - advance as tolerated - if you have questions about your diet instructions, please talk to you doctor. Discharge Activity: May Not Drive - for 1 week or while taking narcotic pain medicine. May shower in (days): 1 Lifting Restrictions: 10 pounds Call your doctor if your incision/area has: Continuous Slow Oozing, Sudden Increased Bleeding, Increased Pain/ Swelling, Increased Redness, Foul Smelling Discharge Call your doctor if you observe: Fever of 101 or Higher Suture Line Care: Avoid Pulling/Pushing, Avoid Pinching/Bending Additional Dressing/Incision Instructions:: Change or remove dressing in 3 days. Leave steri-strips in place for 1 week. Allergies/Adverse Reactions: Allergies fluticasone [From Advair Diskus] Allergy (Verified 11/28/20 06:33) Angioedema Penicillins Allergy (Verified 11/28/20 06:33) Angioedema salmeterol [From Advair Diskus] Allergy (Verified 11/28/20 06:33) Angioedema Medications to take at Discharge Cholecalciferol (Vitamin D3) [D3-2000] 4,000 unit PO BID 07/24/13 Levothyroxine [Synthroid] 100 mcg PO DAILY 07/24/13 duloxetine 60 mg capsule,delayed release 60 mg PO DAILY 07/05/20 montelukast 10 mg tablet 10 mg PO DAILY 07/05/20 pantoprazole 40 mg tablet,delayed release 40 mg PO BID 07/05/20 Albuterol IH (ProAir) [Proair Hfa (SP)Vent Pts] 1 - 2 puff INHALATION Q6H PRN PRN 11/14/20 Primary Care Physician: Polina Chow [employer]SEMBLER, PR[employer]ARD PREASSEMBLER-C [Primary Care Provider] - Test Results: Test results from this visit will be discussed in further detail at your follow- up appointment, if applicable. Please Follow Up With: Jose Higginbotham MD - [phone] When: Call to make an appointment to be seen in about 10 days. <Mariela Felipe - Last Filed: 11/29/20 13:38> Additional Instructions: You may alternate Tylenol and Motrin throughout the day as needed for pain If you have a heating pad, this is also helpful for comfort We definitely encourage ambulating around the house and outside as well Test Results: Test results from this visit will be discussed in further detail at your follow- up appointment, if applicable. Proposed Discharge Date: 11/29/20
[2020-11-28] MEDS: Lactated Ringers 1,000 ML 100 ML IV (06:57)
[2020-11-28] MEDS: BUPIVACAINE LIPOSOME/PF 20 ML VIAL OPERA.SITE (08:58)
[2020-11-28] MEDS: Bupivacaine 0.25% 30 ML Vial (08:59)
[2020-11-28] MEDS: 0.9% Normal Saline (Pres. free 10 ML Vial (09:00)
[2020-11-28] MEDS: Lactated Ringers 1,000 ML 70 ML IV ×2 (09:31→18:55)
--- NOTE | 2020-11-28 10:12 | PCM.OPRPT ---
Problem List (1) Ventral incisional hernia without obstruction or gangrene Status: Acute Report of Operation Date of Procedure: 11/28/20 Pre-Operative Diagnosis: Complex multiple ventral incisional hernias Post-Operative Diagnosis: Complex multiple ventral incisional hernias with extensive intraoperative adhesions Surgery/Procedure Performed:: Hybrid open and laparoscopic repair of multiple ventral incisional hernias. Extensive laparoscopic lysis of adhesions. Laparoscopically guided bilateral transversus abdominis plane block. Ventralight: Ref: [id number], lot number [id number] expiry date 03/19/2021,. Secure strap x2, lot number [id number], expiry date April 2022 Description of Surgical Findings:: Timeout informed consent was obtained. 55-year-old female was taken to the operating placed on the table underwent general endotracheal intubation anesthesia. The abdomen sterilely prepped and draped. Ioban draping was used as well. The patient received clindamycin 900 g intravenously. 20 cc of Exparel mixed with 30 cc 0.5% Marcaine diluted 200 cc with saline was used as a local anesthetic. This was solution used to anesthetize trocar sites and to perform the bilateral tap block. Superior to the umbilicus a vertical incision was created at the site of the previous incision with slight extension cephalad. Sharp technique dissection was carried down through the subcutaneous tissue. Hernia sac from the previous midline incision was encountered. The sac was opened. Immediately there were adhesions of omentum these were sharply dissected free were needed. A portion of the sac was sharply excised. The fascia was then approximated with [id number] sutures of #1 Nurolon. Yoder catheter was inserted. The abdomen was insufflated with CO2 to a pressure of 10 mmHg pressure. Under direct vision the 5 mm ports were placed to the left lateral abdomen and 2 in the right lateral abdomen. Then an hour and 15 minutes was spent in a laparoscopic lysis of adhesions of extensive amount of omental adhesions to the anterior abdominal wall. These were carefully and tediously freed and transected with harmonic scalpel dissection. At the completion of the procedure a high the entire anterior abdominal wall freed. It was visualized where the supraumbilical ventral incisional hernia was present and a separate periumbilical ventral incisional hernia. I then measured a ventral light ST mesh. 2024 x 20 cm. I did trim his very small amount of mesh on the sides. I placed 4 corner sutures of 2-0 Prolene. The mesh was inserted. It was unfurled. Great care was taken to assure that the nonadherent side was internally position. I ablated the material with saline to prevent adhesion. Using a stab incision and a grainy needle I parachuted the mesh up to the abdominal wall. As far as a cephalad coverage as I felt comfortable with I was able to achieve. It is of note that prior to doing this under laparoscopic visualization I performed a bilateral tap block. Using the solution and a 25-gauge needle bilaterally guarding at the xiphoid I was able under laparoscopic mutilation to perform the tap block bilaterally. The mesh now parachuted in place. The sutures were secured. Excellent positioning I thought was achieved. The periphery of the mesh was secured with secure strap at approximately 2 cm intervals. The central portion of the mesh additionally secured to eliminate space. 2 tackers were required. Excellent coverage was achieved. [place] that the mesh was in very good position with good coverage. I then further wetted the mesh with saline. I assured that the greater omentum was overlying the bowel. Hemostasis had been nicely intact. The abdomen was allowed to deflate through an antiviral valve. The deep subcutaneous tissue the epigastric site was closed with several simple sutures of 3-0 Vicryl. Skin edges were approximated with interrupted and running septic or 4-0 Monocryl. Steri-Strips Telfa OpSite dressings applied. Sponge and instrument and needle counts were reported the surgeon to be correct. Specimen includes hernia sac. Drains none. Blood loss minimal. The patient was taken to the recovery area in satisfactory vision without apparent complication Jose Higginbotham M.D., F.A.C.S. Type of Anesthesia:: General, Local Anesthesiologist: Ortiz Baez
[2020-11-28] MEDS: Ketorolac 15 MG/ML Vial IV ×2 (17:03→23:37)
[2020-11-28] MEDS: 0.9% Saline Lock 10 ML Syringe IV (17:03)
[2020-11-28] MEDS: Pantoprazole Sodium 40 MG Tablet PO (20:58)
[2020-11-28] MEDS: DULoxetine Hcl 60 MG Capsule PO (20:58)
[2020-11-29 04:53] VITALS: BP 122/65; PULSE 69; RESP 16; TEMP 37.1; O2SAT 96
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
[2020-11-29] MEDS: Enoxaparin 40 MG/0.4 ML Syringe SC (06:21)
[2020-11-29] MEDS: Levothyroxine 100 MCG Tablet PO (06:21)
[2020-11-29] MEDS: Lactulose 20 GM/30 ML UDC PO (06:21)
[2020-11-29] MEDS: Acetaminophen 325 MG Tablet 650 MG PO (06:28)
[2020-11-29 06:49] LABS: Absolute Lymphocyte Count 2.51 X10^3/uL (0.83-4.51); Absolute Neutrophil Count 11.6 X10^3/uL (2.0-7.7); Basophil# 0.01 X10^3/uL; Basophil% 0.1 % (0-1); Eosinophil# 0.01 X10^3/uL; Eosinophils% 0.1 % (0-5); Hematocrit 35.7 % (37-47); Hemoglobin 11.5 g/dL (12.0-15.0); Lymphocyte # 2.51 X10^3/ul (4.0); Lymphocyte % 16.8 % (19-41); Mean Corp Hgb Conc 32.2 g/dL (32-36); Mean Corpuscular Hgb 30.1 pg (27.0-32.0); Mean Corpuscular Volume 93.5 fL (81-99); Mean Platelet Vol. 10.4 fl (6.2-12.0); Monocyte# 0.79 X10^3/uL; Monocyte% 5.3 % (0-10); NRBC Flagged by Analyzer 0 % (0-5); Neutrophil # 11.61 X10^3/uL (2.7-7.7); Neutrophil % 77.4 % (47-70); Platelet Count 294 K/mm3 (150-450); RBC Distribution Width CV 14.8 % (11.6-14.6); RBC Distribution Width SD 51.1 fl (35.1-43.9); Red Blood Count 3.82 M/mm3 (4.2-5.4)
[2020-11-29] MEDS: Ketorolac 15 MG/ML Vial IV (06:59)
[2020-11-29] MEDS: Montelukast 10 MG Tablet PO (08:03)
[2020-11-29] MEDS: Bisacodyl 10 MG Suppository RC (08:03)
[2020-11-29] MEDS: Pantoprazole Sodium 40 MG Tablet PO (08:03)
[2020-11-29 08:04] VITALS: O2SAT 96
--- NOTE | 2020-11-29 09:31 | NURSING ---
Per patient's report she has passed flatus and had a small bm. Will make Mariela aware when she rounds.
[2020-11-29 10:37] VITALS: BP 108/53; PULSE 85; RESP 18; TEMP 36.9; O2SAT 95
[2020-11-29] MEDS: Ibuprofen 600 MG Tablet PO (12:03)
[2020-11-29] MEDS: HYDROcodone Bitartrate/Apap 5/325 Tablet PO (13:44)
[2020-11-29 13:48] VITALS: BP 109/65; PULSE 78; RESP 16; TEMP 37.2; O2SAT 97
== END 2020-11-29 14:16 | disposition home or self-care (01) ==
LOC: SDC 10:22 → MS3 10:22
PROVIDERS: Admitting Provider Surgery; PCP Nurse Practitioner; Referring Provider Surgery; Visit Provider Surgery
PROC: 0WQF4ZZ Repair Abdominal Wall, Percutaneous Endoscopic Approach (ICD-10-PCS; CPT 49329; principal; 2020-11-28 07:10)
DX: K43.2 Incisional hernia without obstruction or gangrene (principal); M19.90 Unspecified osteoarthritis, unspecified site; F32.9 Major depressive disorder, single episode, unspecified; E78.5 Hyperlipidemia, unspecified; K21.9 Gastro-esophageal reflux disease without esophagitis; M79.7 Fibromyalgia; E66.9 Obesity, unspecified; J45.40 Moderate persistent asthma, uncomplicated; E03.9 Hypothyroidism, unspecified; K42.9 Umbilical hernia without obstruction or gangrene; Z86.16 Personal history of COVID-19; Z79.899 Other long term (current) drug therapy
CPT/HCPCS: 49329; 49560; 85025; 88302; 93005; 96372; 96374; 96376; 99218; 99251; J7120; A4216; C1781; G0378; G0379; G0463; J2405; J3490

== ENCOUNTER → 2020-12-08 10:51 | Outpatient (CLI) | payer BC, SELFPAY ==
[2020-11-28 12:53] VITALS: BMI 40.1
[2020-12-08 11:04] LABS: Mucous, Urine 0 SEEN /hpf (<or=2+)
[2020-12-08 11:06] LABS: Color, Urine Yellow (Yellow); Glucose, Dipstick Normal (Normal); Ketone-Dipstick Negative (Negative); Leukocyte Esterase-Dipstick 500 /ul (Negative); Nitrite-Dipstick Negative (Negative); Occult Blood-Urine 10 /ul (Negative); Protein-Dipstick Negative (Negative); Specific Gravity, Urine 1.005 (1.002-1.030); Urine Bilirubin Dipstick Negative (Negative); Urine Clarity Sl. Cloudy (Clear); Urine Urobilinogen Normal (Normal)
[2020-12-08 11:14] LABS: Red Blood Cells-Urine 0-5 SEEN /hpf (0-5); Squamous Epithelial Cells - UA 0-5 SEEN /hpf (5-10); White Blood Cells 5-10 SEEN /hpf (0-5)
[2020-12-08 11:15] LABS: Bacteria RARE /hpf (None Seen)
== END ==
PROVIDERS: PCP Nurse Practitioner; Referring Provider Surgery; Visit Provider Surgery
DX: R30.0 Dysuria (principal); R82.90 Unspecified abnormal findings in urine; R19.7 Diarrhea, unspecified
CPT/HCPCS: 81001; 87086; 87088; 87493

== ENCOUNTER 2020-12-22 13:47 | Emergency (ER) | payer BC, SELFPAY ==
[2020-11-28 12:53] VITALS: BMI 40.1
[2020-12-22 13:49] VITALS: BP 145/92; PULSE 74; RESP 14; TEMP 36; O2SAT 98; BMI 40.6
--- NOTE | 2020-12-22 14:03 | ED.VIS.GEN ---
History of Present Illness Chief Complaint: Headache Informant: Patient Narrative: Patient is a 55-year-old female with a past medical history of migraines who presents to the ED for a headache. Her symptoms started earlier this morning. She did take her prescribed medication which includes Tylenol and caffeine. She also took a Sudafed which has not given her any relief. She currently rates her headache as a 7 out of 10. It is in the frontal aspect of her forehead. She states that she has been seeing shapes in her vision. She has been nauseous and dry heaving. No head trauma. No fevers or chills. She denies any recent illness. Last month she did have a hernia repair. Her abdominal pain is at its baseline. No change in bowel movements or urination. No rashes. Her symptoms did not come on suddenly. She does not describe it as a thunderclap headache. She started with any visual symptoms which is typical of her migraines. Past Medical History - Allergies and Home Meds Allergies/Adverse Reactions: Allergies fluticasone [From Advair Diskus] Allergy (Verified 12/22/20 13:48) Angioedema Penicillins Allergy (Verified 12/22/20 13:48) Angioedema salmeterol [From Advair Diskus] Allergy (Verified 12/22/20 13:48) Angioedema Primary Care Physician: Polina Chow CERTIFIED REGISTERED NURSE ANESTHETIST, CERTIFIED REGISTERED NURSE ANESTHETIST-C [Primary Care Provider] - Prior records reviewed: Yes Past Medical History: - - Fibromyalgia, hyperlipidemia Surgical History: cholecystectomy, tonsillectomy, fusion in the leg Smoking Status: Never smoker Review of Systems All systems negative except as indicated General: Denies: Chills, Fever, Sweats Eyes: Reports: Visual changes - bilaterally - Seeing shapes. Denies: Diplopia ENT: Denies: Rhinorrhea, Sore throat Cardiovascular: Denies: Chest pain, Palpitations Respiratory: Denies: Dyspnea, Cough, Dyspnea on exertion Gastrointestinal: Reports: Nausea. Denies: Abdominal pain, Vomiting, Diarrhea Genitourinary: Denies: Dysuria, Hematuria, Frequency Musculoskeletal: Denies: Back pain, Extremity Pain Skin: Denies: Rash, Wounds Neurological: Reports: Headache. Denies: Weakness, Numbness Physical Exam Vital Signs/Narrative: Vital Signs Temp Pulse Resp BP Pulse Ox 12/22/20 13:49 96.8 F L 74 14 145/92 H 98 Inital Vital Signs reviewed: Yes General: Well nourished, Well developed, - - Patient sitting up in bed in a dark room holding her head Head: Normocephalic, Atraumatic Eyes: Perrl, EOMI ENT: Moist mucous membranes, No rhinorrhea Neck: Supple, Nontender Cardiovascular: Regular rate, Regular rhythm, No murmurs Respiratory: No distress, CTA bilaterally, Chest nontender Abdomen: Soft, Nontender, Nondistended, Normal bowel sounds Back: Nontender, Normal Inspection Extremities: Nontender, No edema Skin: Normal color, No rash Neurological: Alert, Oriented x3, Cranial nerves II-XII grossly intact, Normal Strength, Normal Sensation Psychological: Normal affect, Normal Mood Diagnostic/Tx/Re-eval - Medical Decision Making Patient presents to the emergency department for migraine. She states that she has gotten migraine cocktails before in the past which helped a lot. I have low concern for subarachnoid hemorrhage. This is pretty typical of her migraines. Will trial Toradol, Reglan, Benadryl and IV fluids. After treatment patient is feeling much better and wants to be discharged home. She feels like her headache is now manageable. Will discharge home in stable condition. If she develops any worsening symptoms she can return to the emergency department anytime for further work-up. She is going to otherwise follow-up with her PCP. All questions answered. ED Disposition - Plan for ED Patient: Disposition: Home or Assisted Living Diagnosis: Migraine Instructions: ED, Migraine (Classical) Referrals: Polina Chow NP, CERTIFIED REGISTERED NURSE ANESTHETIST-C [Primary Care Provider] - 3-5 Days
[2020-12-22] MEDS: DiphenhydrAMINE 50 MG/ML Syringe 25 MG IV (14:22)
[2020-12-22] MEDS: Metoclopramide 10 MG/2 ML Vial 5 MG IV (14:23)
[2020-12-22] MEDS: Ketorolac 30 MG/ML Syringe IV (14:24)
== END 2020-12-22 15:30 | disposition home or self-care (01) ==
PROVIDERS: Emergency Provider Emergency Medicine; PCP Nurse Practitioner
DX: G43.909 Migraine, unspecified, not intractable, without status migrainosus (principal); M79.7 Fibromyalgia; Z79.899 Other long term (current) drug therapy
CPT/HCPCS: 96361; 96374; 96375; 99283; J7040

== ENCOUNTER → 2021-05-08 17:15 | Outpatient (CLI) | payer BC, SELFPAY | PROVIDERS: PCP Nurse Practitioner; Referring Provider Nurse Practitioner Adult Health; Visit Provider Nurse Practitioner Adult Health | DX: R39.15 Urgency of urination (principal) | CPT/HCPCS: 87086; 87088 ==

== ENCOUNTER 2021-11-06 07:34 | Outpatient (CLI) | payer BC, SELFPAY ==
--- NOTE | 2021-11-06 07:36 | CT_ITS ---
STUDY: CT ABDOMEN AND PELVIS WITH CONTRAST REASON FOR EXAM: Female, 56 years old. Upper abdominal pain. History of prior hernia repair. RADIATION DOSAGE (If Supplied By Facility): CTDIvol = ( 15.99 ) mGy, DLP = ( 1124.2 ) mGycm TECHNIQUE: Transaxial images were obtained from the dome of the diaphragm to the symphysis pubis with oral contrast. Oral and amp; IV Readi-CAT and amp; 100mL Isovue-300 was administered. Sagittal and coronal images were reconstructed. Individualized dose optimization techniques were used for this CT. COMPARISON: Comparison is made with prior study dated 11/09/2020. FINDINGS: The visualized lung bases are unremarkable. The visualized portions of the heart are within normal limits. There is decreased attenuation of the liver consistent with steatosis. There are surgical clips in the gallbladder fossa consistent with a prior cholecystectomy. Normal spleen. Normal pancreas. Normal bilateral adrenal glands. Mild degree of bilateral hydronephrosis slightly more prominent on the right side. This may be due to extrarenal pelvis. There has been essentially no change as compared to prior study. The stomach is distended with residual food and oral contrast. Normal small intestine. There are scattered colonic diverticula consistent with diverticulosis. The appendix is visualized and appears normal. There is scattered atherosclerotic calcification of the abdominal aorta, without a demonstrated aneurysm. Normal inferior vena cava. Normal retroperitoneum. Normal urinary bladder. Normal abdominal wall. Disc space narrowing and degeneration at the L2-L3 level with anterior spondylosis. CT/Abdomen/Pelvis WITH Contrast IMPRESSION: Fatty infiltration of the liver. The patient is status post cholecystectomy. Scattered sigmoid diverticula. Stable fullness of both renal pelves suggestive of extrarenal pelvis. This is unchanged. Electronically Signed: Aamir Andres MD at 9:31 EST ,
== END 2021-11-06 23:59 | disposition home or self-care (01) ==
LOC: CT 07:35
PROVIDERS: PCP Nurse Practitioner; Referring Provider Physician Assistant; Visit Provider Physician Assistant
DX: R10.9 Unspecified abdominal pain (principal); Z98.890 Other specified postprocedural states; Z87.19 Personal history of other diseases of the digestive system
CPT/HCPCS: 74177; Q9967

== ENCOUNTER 2022-01-23 03:17 | Emergency (ER) | payer BC, SELFPAY ==
[2022-01-23 03:18] VITALS: BP 135/80; PULSE 70; RESP 69; TEMP 36.4; O2SAT 99; BMI 38.9
--- NOTE | 2022-01-23 03:39 | RAD_ITS ---
STUDY: X-RAY - ACUTE ABDOMINAL SERIES REASON FOR EXAM: Female, 56 years old patient with abdominal pain. TECHNIQUE: Single view of the chest. Supine, and erect view(s) of the abdomen were obtained. COMPARISON: CT of the abdomen and pelvis dated 11/06/2021. FINDINGS: Cardiac monitoring leads are present. The lungs are clear and hyperexpanded. There is a calcified nodule in the left upper lobe that may represent a granuloma. Normal size heart. There are calcified hilar lymph nodes. Normal visualized pulmonary arteries. There is atherosclerotic tortuosity of the aortic arch and descending thoracic aorta. Surgical clips are visible in the right upper quadrant. There is a non-specific bowel gas pattern. There are multiple calcified phleboliths. Normal visualized osseous structures. RAD/Acute Abdomen Inc Chest IMPRESSION: No evidence of acute cardiopulmonary or intra-abdominal disease. Electronically Signed: Oneida Elizabeth MD at 4:27 EDT ,
--- NOTE | 2022-01-23 03:39 | EKG12_ITS ---
Test Reason : CP Blood Pressure : / mmHG Vent. Rate : 074 BPM Atrial Rate : 074 BPM P-R Int : 172 ms QRS Dur : 084 ms QT Int : 400 ms P-R-T Axes : 015 017 084 degrees QTc Int : 444 ms Normal sinus rhythm Low voltage QRS Borderline ECG Confirmed by TIFFANIE CROCKETT, LEI ([id number]), tape editor LARA VELA ([id number]) on 01/25/2022 8:08:05 AM Referred By: JACKIE Confirmed By:ANTONIO MORENO MD
[2022-01-23] MEDS: 0.9% Normal Saline 1,000 ML 999 ML IV (03:52)
[2022-01-23] MEDS: Mag Hydrox/Al Hydrox/Simeth 30 ML UDC PO (03:52)
[2022-01-23 04:00] LABS: Absolute Lymphocyte Count 2.56 X10^3/uL (0.83-4.51); Absolute Neutrophil Count 2.9 X10^3/uL (2.0-7.7); Basophil# 0.05 X10^3/uL; Basophil% 0.8 % (0-1); Eosinophil# 0.33 X10^3/uL; Eosinophils% 5.2 % (0-5); Hematocrit 39.7 % (37-47); Hemoglobin 13.3 g/dL (12.0-15.0); Lymphocyte # 2.56 X10^3/ul (0.83-4.51); Lymphocyte % 40.4 % (19-41); Mean Corp Hgb Conc 33.5 g/dL (32-36); Mean Corpuscular Hgb 30.8 pg (27.0-32.0); Mean Corpuscular Volume 91.9 fL (81-99); Mean Platelet Vol. 10.6 fl (6.2-12.0); Monocyte# 0.45 X10^3/uL; Monocyte% 7.1 % (0-10); NRBC Flagged by Analyzer 0 % (0-5); Neutrophil # 2.93 X10^3/uL (2.7-7.7); Neutrophil % 46.2 % (47-70); Platelet Count 282 K/mm3 (150-450); RBC Distribution Width CV 14.3 % (11.6-14.6); RBC Distribution Width SD 48.9 fl (35.1-43.9); Red Blood Count 4.32 M/mm3 (4.2-5.4); White Blood Count 6.3 K/mm3 (4.4-11.0)
[2022-01-23 04:18] LABS: AST(SGOT) 30 U/L (15-37); Alanine Aminotransfer ALT/SGPT 46 U/L (13-56); Albumin, Serum 3.8 g/dL (3.2-5.0); Alkaline Phosphatase 73 U/L (45-117); Anion Gap 7 (5-15); BUN 13 mg/dL (7-18); BUN/Creat Ratio 15.9 RATIO (10-20); Bilirubin, Direct 0.09 mg/dL (0.00-0.30); Calcium,Total 8.9 mg/dL (8.5-10.1); Chloride 105 mmol/L (98-107); Creatinine, Serum 0.82 mg/dL (0.55-1.02); EST Glomerular Filtration Rate 77 mL/min (>60); Est Glom Filt Rate - Afr Amer 93 mL/min (>60); Estimated Creatinine Clearance 59.87 ml/min; Globulin 3.7 g/dL (2.2-4.2); Glucose 109 mg/dL (74-106); Lipase 242 U/L (73-393); Potassium 3.7 mmol/L (3.5-5.1); Protein, Total 7.5 g/dL (6.4-8.2); Sodium Level 139 mmol/L (136-145); Troponin-I HS < 3 pg/mL (3.0-54.0)
[2022-01-23] MEDS: Ketorolac 15 MG/ML Vial IV (04:58)
[2022-01-23] MEDS: Famotidine 200 MG/20 ML MDV 20 MG in 0.9% Normal Saline (Pres. free 8 ML 300 MG IV (04:58)
[2022-01-23 05:24] VITALS: BP 132/78; PULSE 80; RESP 17; O2SAT 99
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
== END 2022-01-23 05:31 | disposition home or self-care (01) ==
PROVIDERS: Emergency Provider Emergency Medicine; PCP Nurse Practitioner; Visit Provider Emergency Medicine
DX: K29.70 Gastritis, unspecified, without bleeding (principal); E78.5 Hyperlipidemia, unspecified; K21.9 Gastro-esophageal reflux disease without esophagitis; M19.90 Unspecified osteoarthritis, unspecified site; G89.29 Other chronic pain; M79.7 Fibromyalgia; Z86.16 Personal history of COVID-19; E03.9 Hypothyroidism, unspecified; J45.40 Moderate persistent asthma, uncomplicated; E66.9 Obesity, unspecified; F32.A Depression, unspecified; Z90.49 Acquired absence of other specified parts of digestive tract; Z79.899 Other long term (current) drug therapy; Z68.38 Body mass index [BMI] 38.0-38.9, adult
CPT/HCPCS: 74022; 80048; 80076; 83690; 84484; 85025; 93005; 96365; 96375; J7030; A4216; J3490

== ENCOUNTER → 2022-11-27 | Outpatient (CLI) | payer BC, SELFPAY ==
--- NOTE | 2022-11-27 08:16 | CT_ITS ---
STUDY: CT MAXILLOFACIAL SINUSES REASON FOR EXAM: Female, 57 years old. SINUSITIS RADIATION DOSAGE (If Supplied By Facility): CTDIvol = ( 33.06 ) mGy, DLP = ( 804.92 ) mGycm TECHNIQUE: The patient was scanned in a multi detector CT scanner. High resolution axial imaging was performed without the administration of intravenous contrast material. Sagittal and coronal images were reconstructed. Individualized dose optimization techniques were used for this CT. COMPARISON: Comparison is made with prior CT scan the sinuses dated November 13, 2018. FINDINGS: Small submental lymph nodes. FRONTAL SINUSES: Normal aeration, without mucosal inflammatory disease. ETHMOIDAL SINUSES: Stable 1.9 cm by 1.5 cm mucosal polyp or retention cyst in the posterior aspect of the right ethmoid sinus. There is expansion of the bony septation at that site. MAXILLARY SINUSES: Small bilateral air-fluid levels in the maxillary sinuses. There is been prior resection of the superior medial sánchez of the maxillary sinuses bilaterally. SPHENOIDAL SINUSES: Normal aeration, without mucosal inflammatory disease. There is patency of the bilateral maxillary infundibuli with normal uncinate processes, ethmoid bullae, and hiatus semilunaris. Normal bilateral middle turbinates. Normal bilateral inferior turbinates. Normal midline nasal septum. There is patency of the bilateral nasal airways. The visualized osseous structures are normal. The visualized bilateral orbital contents are normal. CT/Sinus/Facial Bone IMPRESSION: Stable mucosal retention cyst or polyp in the posterior aspect of the right ethmoid sinus with the expansion of the bony septation at that site. Small bilateral air-fluid levels in the maxillary sinuses bilaterally. Electronically Signed: Aamir Andres MD at 16:23 EST ,
== END | disposition home or self-care (01) ==
PROVIDERS: Visit Provider Otolaryngology Otolaryngology/Facial Plastic Surgery
DX: J32.8 Other chronic sinusitis (principal)
CPT/HCPCS: 70486

== ENCOUNTER 2023-11-07 09:30 | Outpatient (RCR) | payer BC, SELFPAY ==
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
--- NOTE | 2023-11-11 11:54 | HP.PTREVAL ---
Re-Evaluation Intro: DOROTHY Newman, It has been my pleasure to treat MITRA DELANEY over the last 9 visits for R SHLD PAIN. Please see the progress note below for an update on the physical therapy plan of care! Subjective Subjective: PATIENT REPORTS SHE IS STILL HAVING A LOT OF PAIN BUT SHE CAN WASH HER HAIR BETTER AND FASTEN HER BRA STRAP NOW. STATES SHE WANTED TO START HER SPRING CLEANING BUT COULDN'T BECAUSE OF HER PAIN LEVEL. STATES SHE HASN'T BEEN TAKING ANYTHING FOR PAIN. PATIENT REPORTS INITALLY GETTING A LOT OF PAIN RELIEF WITH THE US AND STRETCHING OF HER ARM BUT INCREASED PAIN WHEN STARTING TO TRY TO STRENGTHEN IT BUT SHE CAN DO MORE NOW THAN SHE COULD BEFORE. SHE REPORTS THE WEATHER EFFECTS HER PAIN TOO. PATIENT REPORTS DOES NOT WANT TO CONTINUE PT AT THIS POINT. SHE REPORTS SHE IS GETTING SOME BENEFIT FROM THE HOME EX'S AND SHE WANTS TO CONTINUE TO TRY THEM AND FOLLOW UP WITH MONICA GUERRA. Objective Objective/Function: PATIENT WAS SEEN TODAY FOR RE-ASSESSMENT OF PROGRESS TOWARD THE SET PT GOALS AND THE NEED FOR FURTHER PHYSICAL THERAPY VS READINESS FOR DISCHARGE. THIS PATIENT IS SLOWLY GAINING R SHOULDER RANGE, STRENGTH AND FUNCTION BUT SHE STILL HAS SIGNIFICANT R UE DEFICITS AND PAIN. UPON EXAM TODAY: ROM deficit: R SHLD AROM IN SITTING: FLEX 144 DEG, ABD 142 DEG. SUPINE ER 31 DEG AND IR 64 DEG WITH 70 DEG ABD. ERP ALL PLANES AND PAIN DURING MVMT IN SITTING. PASSIVE R SHLD FLEXION 156 DEG. Motor deficit: R HAND DOMINANT. R WATER REUSE PROGRAM MANAGER STRENGTH: 62 LBS. R SHLD FLEX 3-/5, ABD 3-/5, IR 3+/5, ER 2+/5, ELBOW FLEX 3+/5, ELBOW EXT 4-/5. L WATER REUSE PROGRAM MANAGER STENGTH: 60 LBS. L SHLD 4/5, ELBOW 5/5. Cervical Mvmt Loss: Flex: NIL Pro: NIL Ext: MIN Ret: MIN RSB: MIN LSB: MIN R Rot: MOD L Rot: MIN PATIENT C/O SORENESS WITH CERVICAL EXTENSION AND RETRACTION TESTING BUT OTHERWISE JUST FEELS TIGHTNESS WITH TESTING. Postural strength: FAIR Palpation: NO ACUTE NECK OR EMI SHOULDER TENDERNESS TODAY. Plan Plan Plan: CONSIDER D/C TO HEP AND FOLLOW UP WITH MONICA GUERRA CNP PER PATIENT REQUEST. HOLD CHART. PATIENT AGREEABLE. REQUESTED PATIENT UPDATE US TO THE OUTCOME OF HER FOLLOW UP WITH POULTRY DRESSER. Balance/Gait/Functional tests Balance/Special Test Scores Quick DASH Score: 31.8175 Goals Goals Goal 1:: INCREASE R SHOULDER ACTIVE ELEVATION BY AT LEAST 25 DEG TO AID ADL'S Goal Time Frame: 2-4 Weeks Goal Progress: Progressing Goal 2:: INCREASE R SHLD STRENGTH BY AT LEAST 1/2 MUSCLE GRADE ALL INVOLVED MUSCULATURE TO AID ADL'S. Goal Time Frame: 2-4 Weeks Goal Progress: Progressing Goal 3:: PATIENT WILL SCORE AT LEAST 8 POINTS BETTER ON QUICK DASH FUNCTIONAL SCREEN TO SHOW IMPROVED FUNCTION. Goal Time Frame: 2-4 Weeks Goal Progress: Goal Met Goal 4:: INDEP HEP Goal Time Frame: 2-4 Weeks Goal Progress: Progressing Anticipated Interventions Anticipated Interventions Patient/Client Instruction: Educate patient on: Condition, Plan of Care and Risk Factors For the Purpose of:: To improve self management Therapeutic Exercise to Include: Strength training, Passive ROM, Active ROM and Scapular Strength/Stabilization For the Purpose of:: To decrease pain, To increase ROM, To improve muscle performance and motor function, To increase tolerance to activity/condition/position and To improve ability of physical actions for home/community/work/leisure Manual Therapy Techniques to Include: Mobilization and Passive ROM For the Purpose of:: To decrease pain, To increase ROM and To improve nutrient delivery to tissue Cryotherapy (ice pack, ice massage): Yes Thermo therapy (hot pack): Yes Ultrasound (thermal/non thermal): Yes For the Purpose of:: To decrease pain, To decrease swelling/inflammation and To improve nutrient delivery to tissue Re-Evaluation Ending Re-evaluation ending: Please do not hesitate to contact me at [phone] by phone or if you have questions or concerns regarding this new plan of care! Sincerely, Sabine Phelps, PT, Cert MDT
--- NOTE | 2024-01-11 20:45 | HP.PT.NRP ---
Patient Information Patient Information: MITRA DELANEY was seen in my office for initial evaluation on 10/20/23. The following Plan of Care was established for this patient: POC Established Initial Frequency: 2-3x /Week Initial Duration: 4-6 Weeks Anticipated Interventions Patient/Client Instruction: Educate patient on: Condition, Plan of Care and Risk Factors For the Purpose of:: To improve self management Therapeutic Exercise to Include: Strength training, Passive ROM, Active ROM and Scapular Strength/Stabilization For the Purpose of:: To decrease pain, To increase ROM, To improve muscle performance and motor function, To increase tolerance to activity/condition/position and To improve ability of physical actions for home/community/work/leisure Manual Therapy Techniques to Include: Mobilization and Passive ROM For the Purpose of:: To decrease pain, To increase ROM and To improve nutrient delivery to tissue Cryotherapy (ice pack, ice massage): Yes Thermo therapy (hot pack): Yes Ultrasound (thermal/non thermal): Yes For the Purpose of:: To decrease pain, To decrease swelling/inflammation and To improve nutrient delivery to tissue Last Seen Last Seen: This patient was last seen in our office 11/11/23. Pertinent comments regarding their Physical therapy will appear below: It has been my pleasure to see this patient for a total of 9 visits. She has not returned to Physical Therapy for more visits and is appropriate to return to MD for further follow-up as needed. At this point I will be discontinuing this patient from physical therapy. I would be happy to see this patient again in the future if found appropriate by the physician. Thank you! Sabine Phelps, PT, Cert MDT Balance/Gait/Functional tests Balance/Special Test Scores Quick DASH Score: 31.8170
== END 2023-11-07 19:00 | disposition home or self-care (01) ==
LOC: PT 09:30
PROVIDERS: Visit Provider Nurse Practitioner Family
DX: M25.512 Pain in left shoulder (principal)
CPT/HCPCS: 97035; 97110; 97140; 97162; 97530

== ENCOUNTER 2023-12-19 13:38 | Emergency (ER) | payer BC, SELFPAY ==
[2023-12-19 13:39] VITALS: BP 142/74; PULSE 76; RESP 16; TEMP 36.6; O2SAT 100; BMI 39.2
--- NOTE | 2023-12-19 14:09 | EKG12_ITS ---
Test Reason : PAIN BETWEN SHOULDER BLADES WHICH RADIATES Blood Pressure : / mmHG Vent. Rate : 071 BPM Atrial Rate : 071 BPM P-R Int : 150 ms QRS Dur : 078 ms QT Int : 394 ms P-R-T Axes : 018 004 071 degrees QTc Int : 428 ms Normal sinus rhythm Low voltage QRS Borderline ECG Confirmed by Franklin Renteria ([id number]), research editor LARA VELA ([id number]) on 12/22/2023 11:11:29 AM Referred By: DALTON Confirmed By:Franklin Renteria
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
[2023-12-19 14:24] VITALS: O2SAT 98
[2023-12-19] MEDS: Ketorolac 15 MG/ML Vial IV (14:34)
--- NOTE | 2023-12-19 14:40 | RAD_ITS ---
STUDY: X-RAY CHEST REASON FOR EXAM: Female, 58 years old. pleuritic L upper back pain TECHNIQUE: PA and lateral views of the chest. COMPARISON: January 23, 2022 FINDINGS: No visualized consolidation. The lungs are clear and expanded. There is no demonstrated pleural abnormality. Normal size heart. There are calcified mediastinal lymph nodes. Normal visualized pulmonary arteries. There is atherosclerotic tortuosity of the aortic arch and descending thoracic aorta. There are diffuse degenerative changes of the visualized thoracic spine. Normal visualized ribs, clavicles, and shoulders. There is no demonstrated abnormality of the visualized soft tissue structures of the upper abdomen. RAD/Chest PA and Lateral IMPRESSION: Degenerative changes, as described above. No demonstrated acute cardiopulmonary process. Electronically Signed: Yazan Corbett MD at 15:21 EDT ,
[2023-12-19 14:42] LABS: Absolute Lymphocyte Count 2.57 X10^3/uL (0.83-4.51); Basophil# 0.11 X10^3/uL; Basophil% 1.4 % (0-1); Eosinophil# 0.49 X10^3/uL; Eosinophils% 6.4 % (0-5); Hematocrit 38.4 % (37-47); Hemoglobin 12.4 g/dL (12.0-15.0); Lymphocyte # 2.57 X10^3/ul (0.83-4.51); Lymphocyte % 33.6 % (19-41); Mean Corp Hgb Conc 32.3 g/dL (32-36); Mean Corpuscular Hgb 30.5 pg (27.0-32.0); Mean Corpuscular Volume 94.6 fL (81-99); Mean Platelet Vol. 10.1 fl (6.2-12.0); Monocyte# 0.46 X10^3/uL; NRBC Flagged by Analyzer 0 % (0-5); Neutrophil % 52.2 % (47-70); Platelet Count 280 K/mm3 (150-450); RBC Distribution Width CV 13.5 % (11.6-14.6); RBC Distribution Width SD 46.5 fl (35.1-43.9); Red Blood Count 4.06 M/mm3 (4.2-5.4); White Blood Count 7.7 K/mm3 (4.4-11.0)
[2023-12-19 15:00] LABS: Anion Gap 4 (5-15); BUN 15 mg/dL (7-18); Calcium,Total 9.1 mg/dL (8.5-10.1); Chloride 108 mmol/L (98-107); Creatinine, Serum 0.79 mg/dL (0.55-1.02); EST Glomerular Filtration Rate 79 mL/min (>60); Est Glom Filt Rate - Afr Amer 96 mL/min (>60); Estimated Creatinine Clearance 83.41 ml/min; Glucose 98 mg/dL (74-106); Potassium 3.9 mmol/L (3.5-5.1); Sodium Level 141 mmol/L (136-145); Troponin-I HS 5 pg/mL (3.0-54.0)
[2023-12-19 15:01] LABS: D-Dimer Quantitative (DVT/PE) 0.56 FEU/ug/m (0.27-0.49)
[2023-12-19 15:38] VITALS: BP 136/82; PULSE 80; RESP 16; TEMP 36.6; O2SAT 98
[2023-12-19 15:43] VITALS: BP 136/82; PULSE 80; RESP 16; TEMP 36.6; O2SAT 99
== END 2023-12-19 15:46 | disposition home or self-care (01) ==
PROVIDERS: Emergency Provider Emergency Medicine; PCP Nurse Practitioner Family; Visit Provider Emergency Medicine
DX: S29.019A Strain of muscle and tendon of unspecified wall of thorax, initial encounter (principal); X58.XXXA Exposure to other specified factors, initial encounter; Y93.89 Activity, other specified; E78.5 Hyperlipidemia, unspecified; E03.9 Hypothyroidism, unspecified; Z79.899 Other long term (current) drug therapy; F32.A Depression, unspecified; Z90.49 Acquired absence of other specified parts of digestive tract; Z98.51 Tubal ligation status
CPT/HCPCS: 71046; 80048; 84484; 85025; 85379; 93005; 96374; 99284; A4216

== ENCOUNTER 2024-03-05 04:59 | Emergency (ER) | payer BC, SELFPAY ==
[2024-03-05 04:59] VITALS: BP 130/77; PULSE 74; RESP 16; TEMP 35.5; O2SAT 98; BMI 41.8
[2024-03-05 05:02] VITALS: BP 130/77; PULSE 74; RESP 16; TEMP 35.5; O2SAT 95
[2024-03-05] MEDS: Cephalexin 250 MG Capsule 500 MG PO (05:36)
[2024-03-05 05:37] LABS: Mucous, Urine 0 SEEN /hpf (<or=2+)
[2024-03-05] MEDS: Phenazopyridine 95 MG Tablet 190 MG PO (05:37)
[2024-03-05 05:38] LABS: Color, Urine Amber (Yellow); Glucose, Dipstick Normal (Normal); Ketone-Dipstick Negative (Negative); Leukocyte Esterase-Dipstick 500 /ul (Negative); Nitrite-Dipstick Positive (Negative); Occult Blood-Urine 250 /ul (Negative); Protein-Dipstick 15 mg/dl (Negative); Urine Clarity Clear (Clear); Urine Urobilinogen 8 mg/dl (Normal)
[2024-03-05 05:53] LABS: Bacteria 1+ /hpf (None Seen); Red Blood Cells-Urine 0-5 SEEN /hpf (0-5); Squamous Epithelial Cells - UA 0-5 SEEN /hpf (5-10); Transitional Epithelial - Ur 0-5 SEEN /hpf (0-5); Urine Bilirubin Dipstick 3 mg/dL (Negative); White Blood Cells 25-50 SEEN /hpf (0-5)
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
== END 2024-03-05 06:06 | disposition home or self-care (01) ==
PROVIDERS: Emergency Provider Emergency Medicine; PCP Nurse Practitioner Family; Visit Provider Emergency Medicine
DX: N39.0 Urinary tract infection, site not specified (principal); M79.7 Fibromyalgia; E78.5 Hyperlipidemia, unspecified; E03.9 Hypothyroidism, unspecified; Z79.899 Other long term (current) drug therapy; F32.A Depression, unspecified; Z98.51 Tubal ligation status; Z90.49 Acquired absence of other specified parts of digestive tract
CPT/HCPCS: 81001; 87086; 87088; 87186; 99283

== ENCOUNTER → 2024-07-26 | Outpatient (CLI) | payer BC, SELFPAY | END | disposition home or self-care (01) | LOC: LABSPEC 15:51 | PROVIDERS: PCP Nurse Practitioner Family; Referring Provider Urology; Visit Provider Urology | DX: N39.0 Urinary tract infection, site not specified (principal) | CPT/HCPCS: 87086; 87088 ==

== ENCOUNTER 2024-08-25 19:05 | Emergency (ER) | payer BC, SELFPAY ==
[2024-08-25 19:05] VITALS: O2SAT 97
[2024-08-25 19:06] VITALS: BP 143/77; PULSE 90; RESP 16; TEMP 36.1; O2SAT 98; BMI 41.2
--- NOTE | 2024-08-25 19:20 | EKG12_ITS ---
Test Reason : sob Blood Pressure : */* mmHG Vent. Rate : 81 BPM Atrial Rate : 81 BPM P-R Int : 184 ms QRS Dur : 78 ms QT Int : 374 ms P-R-T Axes : 27 0 23 degrees QTcB Int : 434 ms Normal sinus rhythm Low voltage QRS Borderline ECG Confirmed by Franklin Renteria ([id number]), photography editor ANITHA MAC ([id number]) on 08/27/2024 10:41:41 AM Referred By: Sarkis Confirmed By: Franklin Renteria
--- NOTE | 2024-08-25 19:20 | CT_ITS ---
STUDY: CTA CHEST REASON FOR EXAM: Female, 59 years old. R-Cp ?? PE RADIATION DOSAGE (If Supplied By Facility): CTDIvol = ( 22.12 ) mGy, DLP = ( 543.89 ) mGycm TECHNIQUE: The examination was performed with the intravenous administration of IV 100mL Isovue-370. Post-processing of the angiographic images was performed, with multiplanar reformation and 3D reconstruction. Individualized dose optimization techniques were used for this CT. COMPARISON: None. FINDINGS: Normal enhancement of the main pulmonary artery and right and left pulmonary arteries. Normal enhancement of the bilateral peripheral pulmonary arteries. There is no demonstrated pulmonary embolism. Normal thoracic aorta and visualized great vessels. There is no demonstrated aortic dissection. Normal heart and pericardium. Normal mediastinum. There are calcified left hilar lymph nodes. Normal visualized trachea and bronchi. The lungs are under expanded. There is elevation of the right hemidiaphragm. Streaky densities in both lung bases are most consistent with areas of subsegmental atelectasis and/or scarring. No infiltrates. No effusions. Normal osseous structures. There is diffuse fatty infiltration of the liver. CT/CTA Chest W/WO Contrast IMPRESSION: Normal CTA chest examination, without a demonstrated pulmonary embolism or arterial dissection. Low lung volumes. Subsegmental atelectasis of the lung bases. Electronically Signed: Darci Ozuna MD at 21:03 EST ,
[2024-08-25 19:23] VITALS: O2SAT 97
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
[2024-08-25 19:47] LABS: Absolute Lymphocyte Count 2.55 X10^3/uL (0.83-4.51); Absolute Neutrophil Count 7.8 X10^3/uL (2.0-7.7); Basophil# 0.07 X10^3/uL; Basophil% 0.6 % (0-1); Eosinophil# 0.42 X10^3/uL; Eosinophils% 3.6 % (0-5); Hematocrit 35.8 % (37-47); Hemoglobin 11.9 g/dL (12.0-15.0); Lymphocyte # 2.55 X10^3/ul (0.83-4.51); Lymphocyte % 21.8 % (19-41); Mean Corp Hgb Conc 33.2 g/dL (32-36); Mean Corpuscular Volume 93.2 fL (81-99); Monocyte# 0.81 X10^3/uL; Monocyte% 6.9 % (0-10); NRBC Flagged by Analyzer 0 % (0-5); Neutrophil # 7.79 X10^3/uL (2.7-7.7); Neutrophil % 66.7 % (47-70); Platelet Count 282 K/mm3 (150-450); RBC Distribution Width CV 14.1 % (11.6-14.6); RBC Distribution Width SD 48.2 fl (35.1-43.9); Red Blood Count 3.84 M/mm3 (4.2-5.4); White Blood Count 11.7 K/mm3 (4.4-11.0)
[2024-08-25 20:05] VITALS: BP 118/71; PULSE 82; RESP 20; O2SAT 98
[2024-08-25 20:05] LABS: Anion Gap 6 (5-15); BUN 14 mg/dL (7-18); Calcium,Total 9.1 mg/dL (8.5-10.1); Chloride 104 mmol/L (98-107); Creatinine, Serum 0.78 mg/dL (0.55-1.02); EST Glomerular Filtration Rate 81 mL/min (>60); Est Glom Filt Rate - Afr Amer 97 mL/min (>60); Estimated Creatinine Clearance 85.94 ml/min; Glucose 101 mg/dL (74-106); Potassium 3.5 mmol/L (3.5-5.1); Sodium Level 139 mmol/L (136-145); Troponin-I HS (w/2H Reflex) 3 pg/mL (3.0-54.0)
[2024-08-25 21:00] VITALS: PULSE 83; RESP 20; O2SAT 98
[2024-08-25] MEDS: Ondansetron 4 MG/2 ML Vial IV (21:04)
[2024-08-25] MEDS: Morphine 4 MG/ML Syringe IV (21:05)
[2024-08-25 21:44] LABS: Reflex Troponin-HS? (from REC) Y
[2024-08-25 21:48] VITALS: BP 124/68; PULSE 73; RESP 16; TEMP 36.4; O2SAT 97
== END 2024-08-25 22:00 | disposition home or self-care (01) ==
PROVIDERS: Emergency Provider Emergency Medicine; PCP Nurse Practitioner Family; Visit Provider Emergency Medicine
DX: R06.02 Shortness of breath (principal); R07.89 Other chest pain; Z96.611 Presence of right artificial shoulder joint; M79.7 Fibromyalgia; E78.5 Hyperlipidemia, unspecified; E03.9 Hypothyroidism, unspecified; Z79.890 Hormone replacement therapy; K21.9 Gastro-esophageal reflux disease without esophagitis; Z79.899 Other long term (current) drug therapy; F32.A Depression, unspecified; Z98.51 Tubal ligation status; Z90.49 Acquired absence of other specified parts of digestive tract
CPT/HCPCS: 71275; 80048; 84484; 85025; 93005; 96374; 96375; 99284; Q9967; A4216; J2405

== ENCOUNTER 2024-11-03 07:43 | Emergency (ER) | payer BC, SELFPAY ==
[2024-11-03] VITALS (9 sets, daily range): BP systolic 117–138; BP diastolic 72–89; PULSE 71–88; RESP 15–16; TEMP 36.2–36.4; O2SAT 97–100; BMI 39.3
--- NOTE | 2024-11-03 08:01 | RAD_ITS ---
PROCEDURE: CHEST 1 VIEW (PORTABLE) REASON FOR EXAM: Shortness of breath. TECHNIQUE: Frontal view of the chest. COMPARISON: Yesterday RAD/Chest 1 View (Portable) IMPRESSION: Prior right shoulder arthroplasty. Asymmetric right acromioclavicular joint de generative changes are seen. At least mild degenerative changes of the visualized spine are seen. Lungs appear clear of acute disease throughout, and appear unchanged from the s tudy of 09/17/2024. No evidence of pulmonary edema. No pleural effusion or pneumothorax is seen. The cardiomediastinal silhouette is stable, without evidence of cardiomegaly. No evidence of acute cardiopulmonary disease. Reading Location: [id number]
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
[2024-11-03] MEDS: Ipratropium/Albuterol Sulfate 3 ML AMPUL.NEB INHALATION (08:30)
[2024-11-03 08:50] LABS: Absolute Lymphocyte Count 2.14 X10^3/uL (0.83-4.51); Absolute Neutrophil Count 2.9 X10^3/uL (2.0-7.7); Basophil# 0.04 X10^3/uL; Basophil% 0.7 % (0-1); Eosinophil# 0.37 X10^3/uL; Eosinophils% 6.4 % (0-5); Hematocrit 38.6 % (37-47); Hemoglobin 12.4 g/dL (12.0-15.0); Lymphocyte # 2.14 X10^3/ul (0.83-4.51); Lymphocyte % 37.3 % (19-41); Mean Corp Hgb Conc 32.1 g/dL (32-36); Mean Corpuscular Hgb 30.1 pg (27.0-32.0); Mean Corpuscular Volume 93.7 fL (81-99); Mean Platelet Vol. 10.1 fl (6.2-12.0); Monocyte# 0.31 X10^3/uL; Monocyte% 5.4 % (0-10); NRBC Flagged by Analyzer 0 % (0-5); Neutrophil # 2.87 X10^3/uL (2.7-7.7); Platelet Count 219 K/mm3 (150-450); RBC Distribution Width CV 13.6 % (11.6-14.6); RBC Distribution Width SD 46.9 fl (35.1-43.9); Red Blood Count 4.12 M/mm3 (4.2-5.4); White Blood Count 5.7 K/mm3 (4.4-11.0)
[2024-11-03 09:10] LABS: Anion Gap 6 (5-15); BUN 10 mg/dL (7-18); BUN/Creat Ratio 13.7 RATIO (10-20); Calcium,Total 9.1 mg/dL (8.5-10.1); Chloride 107 mmol/L (98-107); Creatinine, Serum 0.73 mg/dL (0.55-1.02); EST Glomerular Filtration Rate 86 mL/min (>60); Est Glom Filt Rate - Afr Amer 104 mL/min (>60); Estimated Creatinine Clearance 89.36 ml/min; Glucose 92 mg/dL (74-106); Potassium 4.1 mmol/L (3.5-5.1); Sodium Level 141 mmol/L (136-145)
[2024-11-03 10:04] LABS: D-Dimer Quantitative (DVT/PE) 1.15 FEU/ug/m (0.27-0.49)
--- NOTE | 2024-11-03 10:10 | CT_ITS ---
PROCEDURE: CTA CHEST W/WO CONTRAST REASON FOR EXAM: Elevated D-dimer. Concern for pulmonary embolism. TECHNIQUE: CT pulmonary angiogram with contrast COMPARISON: Chest x-ray of 11/03/2024. FINDINGS: No evidence of pulmonary embolism. No pleural effusion or pneumothorax is seen. No focal infiltrate is noted. No evidence of pulmonary edema. No adenopathy is evident no pericardial effusion is seen. Limited visualization of the upper end shows no acute process. Prior cholecystectomy. Mild degenerative changes of the visualized spine are also noted. CT/CTA Chest W/WO Contrast IMPRESSION: 1. No evidence of pulmonary embolism. 2. No acute process is seen. One or more dose reduction techniques were used (e.g., Automated exposure contr ol, adjustment of the mA and/or kV according to patient size, use of iterative reconstruction technique). Reading Location: [id number]
== END 2024-11-03 12:50 | disposition home or self-care (01) ==
PROVIDERS: Emergency Provider Emergency Medicine; PCP Nurse Practitioner Family; Visit Provider Emergency Medicine
DX: R06.00 Dyspnea, unspecified (principal); J45.901 Unspecified asthma with (acute) exacerbation; E78.5 Hyperlipidemia, unspecified; E03.9 Hypothyroidism, unspecified; K21.9 Gastro-esophageal reflux disease without esophagitis; Z79.890 Hormone replacement therapy; Z79.899 Other long term (current) drug therapy; F32.A Depression, unspecified; Z96.619 Presence of unspecified artificial shoulder joint; Z98.51 Tubal ligation status; Z90.49 Acquired absence of other specified parts of digestive tract
CPT/HCPCS: 71045; 71275; 80048; 85025; 85379; 87631; 94640; 99283; Q9967; A4216

== ENCOUNTER 2024-11-18 09:30 | Outpatient (RCR) | payer BC, SELFPAY ==
--- NOTE | 2024-08-30 19:06 | HP.PTEVAL ---
Patient's Visit Information Visit Information Visit Information: MITRA DELANEY is a 59 year old F referred to Physical Therapy by Dr. Kamar Titus MD with a diagnosis of PRIMARY OSTEOARTHRITIS RIGHT SHOULDER. Date of Evaluation: 08/30/24 Physical Therapist: Lonnie Burnett, PT, Cert MDT, OCS Visit Plan Frequency: 2x /Week Duration: 12 WEEKS Plan: S/P REVERSE TSR 08/23 SEE PROTOCOL ER LIMITED BY 30 DEGREES SLING 4 WEEKS PT INTERVENTIONS PHASE 1 -3WEEKS PROM ,PHASE 2 4-6 WEEKS AAROM ,THEN PHASE 3 STRENGTHENING ,MANUAL THERAPY Subjective Subjective: This 59 y/o female present sto physical therapy with reverse TSR on 08/23/24 [facility] Done by DR Titus. Patient d/c next day with sling for 4 weeks . Prior to surgery tried PT . Patient had imaging . Patient seen DR on 08/27 and recommended PT. Pain medication oxycodone and had bone block. Patient has some breathing issues. Patient uses ice machine helps with pain. Patient has limitations with all functional activities and ADL and housework tasks Patient has had shoulder pain many years. Patient denies paresthesia/tingling -. Patient pain affects sleeping and needs to sleeps in recliner. Patient RTD in Sep 22 week. Patient condition of surgery affects QOL and function. Patient goals to return to prior level of function. SOCAIL: single VOCATION: home Pain Right Shoulder: Pain Intensity (Out of 10): 6 Pain Intensity Range: 10 Objective Objective: POSTURE: rounded shoulders ,sling intact INCISION: well approximate anterior shoulder NEURO: denies paresthesia/tingling PROM: shoulder flexion 95 degrees ,ER 0 degrees AAROM: elbow flexion 0-115 degree MMT: NT Balance/Special Test Scores Quick DASH Score: 79.5450 Goals Goal 1:: Patient to be I with HEP for shoulder Goal Time Frame: 6-8 Weeks Goal 2:: Patient to demonstrate 70% improve with improve function with activities and ADL/houseworks tasks Goal Time Frame: 8-12 Weeks Goal 3:: Patient to improve AROM shoulder flexion abduction ~ 140 degrees ,ER 75 and IR L3 to put on coat Goal Time Frame: 8-12 Weeks Goal 4:: Patient to to improve peak force shoulder by 10 # to improve ADL's and OH Goal Time Frame: 8-12 Weeks Goal 5:: Patient to improve improve quick dash by 5-10 points to improve QOL Goal Time Frame: 8-12 Weeks Rehabilitation Potential Physical Therapy Diagnosis: Patient underwent s/p reverse TSR on 12.2 with pain ,decrease ROM ,strength and function with ADLS thus benefir from Rehabilitation Potential: Good Anticipated Interventions Patient/Client Instruction: Educate patient on: Condition and Plan of Care For the Purpose of:: To decrease pain, To increase ROM, To improve muscle performance and motor function, To improve ability to perform ADL's, To increase tolerance to activity/condition/position, To improve ability of physical actions for home/community/work/leisure, To improve health of tissue, To decrease soft tissue restriction, To increase flexibility/ROM, To assume or resume ADL's and To improve tolerance to ADL's Therapeutic Exercise to Include: Strength training, Flexibilty training, Passive ROM, Active ROM and Scapular Strength/Stabilization Comment: SEE PROTOCAL For the Purpose of:: To decrease pain, To increase ROM, To improve muscle performance and motor function, To improve ability to perform ADL's, To increase tolerance to activity/condition/position, To improve ability of physical actions for home/community/work/leisure, To improve health of tissue, To decrease soft tissue restriction and To increase flexibility/ROM Manual Therapy Techniques to Include: Passive ROM For the Purpose of:: To decrease pain, To increase ROM, To improve nutrient delivery to tissue, To increase oxygenation perfusion, To improve health of tissue and To decrease soft tissue restriction Cryotherapy (ice pack, ice massage): Yes Thermo therapy (hot pack): Yes For the Purpose of:: To decrease pain Text: Thank you for the opportunity to evaluate your patient. For Medicare and Medicare HMO plans, please review the plan of care and approve it. It will need to be FAXED BACK to us at [phone] for Medicare purposes. For Medicare only, by signing this I certify the plan of care. Please let me know if there are questions or concerns regarding this plan of care. Physician Signature: Date:
--- NOTE | 2024-10-21 11:02 | HP.PTRE(2)_ITS ---
<Statement entered by Lonnie Burnett PT, Britney PERALTA, OCS - 10/21/24 11:02> This document has been reviewed and signed. Re-Evaluation Intro: Dr. Kamar Titus MD, It has been my pleasure to treat MITRA DELANEY over the last visits for . Please see the progress note below for an update on the physical therapy plan of care! Anticipated Interventions Re-Evaluation Ending Re-evaluation ending: Please do not hesitate to contact me at [phone] by phone or if you have questions or concerns regarding this new plan of care! Sincerely, oLnnie Burnett PT, Britney CROCKETTT, OCS
--- NOTE | 2024-10-21 11:02 | HP.PTRE(2) ---
Re-Evaluation Intro: Dr. Kamar Titus MD, It has been my pleasure to treat MITRA DELANEY over the last visits for . Please see the progress note below for an update on the physical therapy plan of care! Anticipated Interventions Re-Evaluation Ending Re-evaluation ending: Please do not hesitate to contact me at [phone] by phone or if you have questions or concerns regarding this new plan of care! Sincerely, Lonnie Burnett PT, Cert MDT, OCS
--- NOTE | 2024-10-21 11:03 | HP.PTREVAL ---
Re-Evaluation Intro: Dr. Kamar Titus MD, It has been my pleasure to treat MITRA DELANEY over the last 13 visits for PRIMARY OSTEOARTHRITIS RIGHT SHOULDER. Please see the progress note below for an update on the physical therapy plan of care! Subjective Subjective: I'm doing more than I can do before surgery Patient can do hair and reach for things ,and just need to get stronger Objective Objective/Function: POSTURE: rounded shoulders INCISION: intact NEURO: denies paresthesia/tingling AROM: shoulder flexion 95 degrees ,ER 79 degrees,IR pelvis MMT: infraspinatus 7.3 ,subscapularis 8.9 ,supraspinatus 7.3 ,deltoid 4.3 Plan Plan Plan: S/P REVERSE TSR / SEE PROTOCOL REVERSE TSR Start strengthening PT INTERVENTIONS PHASE 1 -3WEEKS PROM ,PHASE 2 4-6 WEEKS AAROM ,THEN PHASE 3 STRENGTHENING ,MANUAL THERAPY Balance/Gait/Functional tests Balance/Special Test Scores Quick DASH Score: 29.5450 Goals Goals Goal 1:: Patient to be I with HEP for shoulder Goal Time Frame: 6-8 Weeks Goal 2:: Patient to demonstrate 80% improve with improve function with activities and ADL/houseworks tasks( new goal) Goal Time Frame: 8-12 Weeks Goal 3:: Patient to improve AROM shoulder flexion abduction ~ 160 degrees ,ER 80 and IR L3 to put on coat and reach in cupboard( new goals) Goal Time Frame: 8-12 Weeks Goal 4:: Patient to to improve peak force shoulder by 10 # to improve ADL's and OH Goal Time Frame: 8-12 Weeks Goal Progress: Progressing Goal 5:: Patient to improve improve quick dash by 5-10 points to improve QOL Goal Time Frame: 8-12 Weeks Anticipated Interventions Anticipated Interventions Patient/Client Instruction: Educate patient on: Condition and Plan of Care For the Purpose of:: To decrease pain, To increase ROM, To improve muscle performance and motor function, To improve ability to perform ADL's, To increase tolerance to activity/condition/position, To improve ability of physical actions for home/community/work/leisure, To improve health of tissue, To decrease soft tissue restriction, To increase flexibility/ROM, To assume or resume ADL's and To improve tolerance to ADL's Therapeutic Exercise to Include: Strength training, Flexibilty training, Passive ROM, Active ROM and Scapular Strength/Stabilization Comment: SEE PROTOCAL For the Purpose of:: To decrease pain, To increase ROM, To improve muscle performance and motor function, To improve ability to perform ADL's, To increase tolerance to activity/condition/position, To improve ability of physical actions for home/community/work/leisure, To improve health of tissue, To decrease soft tissue restriction and To increase flexibility/ROM Manual Therapy Techniques to Include: Passive ROM For the Purpose of:: To decrease pain, To increase ROM, To improve nutrient delivery to tissue, To increase oxygenation perfusion, To improve health of tissue and To decrease soft tissue restriction Cryotherapy (ice pack, ice massage): Yes Thermo therapy (hot pack): Yes For the Purpose of:: To decrease pain Re-Evaluation Ending Re-evaluation ending: Please do not hesitate to contact me at [phone] by phone or if you have questions or concerns regarding this new plan of care! Sincerely, Lonnie Burnett, PT, Cert MDT, OCS
--- NOTE | 2024-11-18 10:18 | HP.PTDCSUM ---
Discharge Summary D/C summary: It has been my pleasure to treat MITRA DELANEY referred by Dr. Kamar Titus MD, with the diagnosis of PRIMARY OSTEOARTHRITIS RIGHT SHOULDER for a total of 20 visit(s). Discharge Date: Please see the following information for a summary of their discharge status. 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 Pain Right Shoulder: Pain Intensity (Out of 10): 0 Overall Improvement % Improvement: 90 Objective Objective/Function: POSTURE: rounded shoulders INCISION: intact NEURO: denies paresthesia/tingling AROM: shoulder flexion 160 degrees , ABDUCTION 160 degrees ER 80 degrees,IR pelvis MMT: infraspinatus 13.2 ,subscapularis 15.8 ,supraspinatus 13.2 ,deltoid 14.7 Goals Goal 1:: Patient to be I with HEP for shoulder Goal 2:: Patient to demonstrate 80% improve with improve function with activities and ADL/houseworks tasks( new goal) Goal 3:: Patient to improve AROM shoulder flexion abduction ~ 160 degrees ,ER 80 and IR L3 to put on coat and reach in cupboard( new goals) Goal 4:: Patient to to improve peak force shoulder by 10 # to improve ADL's and OH Goal Progress: Progressing Goal 5:: Patient to improve improve quick dash by 5-10 points to improve QOL Plan Plan: D/C D/C Information d/c sentence: If there are questions or concerns regarding this patient's physical therapy, please feel free to call me at [phone]. Thank you for the referral of this patient. Sincerely, Lonnie Burnett, PT, Cert MDT, OCS Balance/Gait/Functional tests Balance/Special Test Scores Quick DASH Score: 6.8175 Improvement % Improvement: 90
== END 2024-11-18 12:12 | disposition home or self-care (01) ==
LOC: PT 09:30
PROVIDERS: PCP Nurse Practitioner Family; Referring Provider Orthopaedic Surgery; Visit Provider Orthopaedic Surgery
DX: M19.011 Primary osteoarthritis, right shoulder (principal)
CPT/HCPCS: 97110; 97140; 97162; 97530

== ENCOUNTER 2024-12-06 18:25 | Emergency (ER) | payer BC, SELFPAY ==
[2024-12-06 18:25] VITALS: BP 188/110; PULSE 85; RESP 16; TEMP 36.4; O2SAT 100; BMI 39.9
--- NOTE | 2024-12-06 20:47 | ED.RN ---
pt came out to triage desk and states i just wanted to let someone know that i am leaving. i have sat here for hours and i have not even been seen. pt proceeded to tell this rn that the chairs in the hallway beds were uncomfortable and she thinks this is ridiculous. charge nurse notified and registration notified
== END 2024-12-06 20:45 | disposition left against medical advice (07) ==
LOC: ED 20:47
PROVIDERS: PCP Nurse Practitioner Family
DX: M79.601 Pain in right arm (principal)
CPT/HCPCS: 99281

== ENCOUNTER 2025-02-01 08:30 | Outpatient (RCR) | payer BC, SELFPAY ==
--- NOTE | 2025-01-10 10:41 | HP.PTEVAL ---
Patient's Visit Information Visit Information Visit Information: MITRA DELANEY is a 59 year old F referred to Physical Therapy by DOROTHY DIAZ with a diagnosis of R LE radiculopathy. Date of Evaluation: 01/10/25 Physical Therapist: Miguel Ángel Koch, PT, ATC Visit Plan Frequency: 2x /Week Duration: 4-6 Weeks Plan: Postural edu, neutral spine stab ex's, R LE strengthening, nustep, and HEP Subjective Subjective: Pt reports she has had R glute pain for approximately 6 weeks. Pt notes her pain has progressively worsened over this time span. Pt reports she is only able to sleep for 1 1/2 hours at a time secondary to pain. Pt notes she had an injection last week that took her pain away for one week. Pt notes she is here today secondary to having to perform PT prior to getting other tests. Pt notes her pain starts in her R glute region and radiates to her R foot. Pt notes the pain that radiates to her R foot just started this week. Pt reports she has had recent x-rays which revealed significant OA of the L/S. Pt reports all activity increases her pain. She is unable to stand or sit for a prolonged period of time secondary to pain. Pt reports she sees a surgeon next week. 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 LBP is 6/10 currently, and is 9/10 at worst. Pt is limited with all ADL's and IAD:'s at this time. Pain L/S: Pain Intensity (Out of 10): 6 Pain Intensity Range: 9 Objective Objective: Neuro: B LE sensation is WNL to light touch. MMT: R LE is grossly 4-/5 throughout. L LE is 5/5 throughout. ROM: Pt is severely limited with extension of the L/s. All other motions are WNL Repeated movements: SKTC/DKTC peripheralizes sx's into L LE SPecial testing: unable to perform secondary to LBP Balance/Special Test Scores Oswestry Low Back Score: 34 Goals Goal 1:: Decrease LBP x 50% to aid with sleep Goal Time Frame: 4-6 Weeks Goal 2:: Increase R LE strength x 1 grade to aid with IADL's Goal Time Frame: 4-6 Weeks Goal 3:: I with HEP Goal Time Frame: 4-6 Weeks Goal 4:: Increase L/S extension ROM x 1 grade to aid with IADL's Goal Time Frame: 4-6 Weeks Rehabilitation Potential Physical Therapy Diagnosis: Pt has RT LE radiculopathy and difficulth with all IADL's secondary to degenerative changes in L/S Rehabilitation Potential: Good Anticipated Interventions Patient/Client Instruction: Educate patient on: Condition and Plan of Care For the Purpose of:: To improve self management Therapeutic Exercise to Include: Strength training, Endurance training, Body mechanics, Postural training and Dynamic Lumbar Stabilization For the Purpose of:: To decrease pain, To increase ROM and To improve muscle performance and motor function Text: Thank you for the opportunity to evaluate your patient. For Medicare and Medicare HMO plans, please review the plan of care and approve it. It will need to be FAXED BACK to us at [phone] for Medicare purposes. For Medicare only, by signing this I certify the plan of care. Please let me know if there are questions or concerns regarding this plan of care. Physician Signature: Date:
--- NOTE | 2025-03-28 14:55 | HP.PT.NRP ---
Patient Information Patient Information: MITRA DELANEY was seen in my office for initial evaluation on 01/10/25. The following Plan of Care was established for this patient: POC Established Initial Frequency: 2x /Week Initial Duration: 4-6 Weeks Anticipated Interventions Patient/Client Instruction: Educate patient on: Condition and Plan of Care For the Purpose of:: To improve self management Therapeutic Exercise to Include: Strength training, Endurance training, Body mechanics, Postural training and Dynamic Lumbar Stabilization For the Purpose of:: To decrease pain, To increase ROM and To improve muscle performance and motor function Last Seen Last Seen: This patient was last seen in our office . Pertinent comments regarding their Physical therapy will appear below: Pt has not returned for greater than 30 days and is discontinued at this time. At this point I will be discontinuing this patient from physical therapy. I would be happy to see this patient again in the future if found appropriate by the physician. Thank you! Miguel Ángel Koch, PT, ATC Balance/Gait/Functional tests Balance/Special Test Scores Oswestry Low Back Score: 34
== END 2025-02-01 19:00 | disposition home or self-care (01) ==
LOC: PT 08:30
PROVIDERS: PCP Nurse Practitioner Family; Referring Provider Nurse Practitioner Family; Visit Provider Nurse Practitioner Family
DX: M54.16 Radiculopathy, lumbar region (principal)
CPT/HCPCS: 97110; 97161

== ENCOUNTER 2025-05-09 21:26 | Emergency (ER) | payer BC, SELFPAY ==
[2025-05-09 21:26] VITALS: BP 157/100; PULSE 98; RESP 18; TEMP 36.8; O2SAT 98
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
[2025-05-09 21:46] VITALS: BP 157/100; PULSE 98; RESP 18; TEMP 36.8; O2SAT 98; BMI 40.8
[2025-05-09 21:50] LABS: Red Blood Cells-Urine 0 SEEN /hpf (0-5)
[2025-05-09 21:53] LABS: Color, Urine Yellow (Yellow); Glucose, Dipstick Normal (Normal); Ketone-Dipstick Negative (Negative); Leukocyte Esterase-Dipstick 500 /ul (Negative); Nitrite-Dipstick Negative (Negative); Occult Blood-Urine 150 /ul (Negative); Protein-Dipstick 30 mg/dl (Negative); Specific Gravity, Urine 1.015 (1.002-1.030); Urine Bilirubin Dipstick Negative (Negative)
[2025-05-09 22:10] LABS: Hematocrit 34.1 % (37-47); Hemoglobin 11.4 g/dL (12.0-15.0); Immature Granulocytes Count 0.160 X10^3/uL (0.0-0.0); Mean Corp Hgb Conc 33.4 g/dL (32-36); Mean Corpuscular Volume 93.7 fL (81-99); Mean Platelet Vol. 9.9 fl (6.2-12.0); NRBC Flagged by Analyzer 0 % (0-5); Platelet Count 366 K/mm3 (150-450); RBC Distribution Width CV 13.5 % (11.6-14.6); RBC Distribution Width SD 46.4 fl (35.1-43.9); Red Blood Count 3.64 M/mm3 (4.2-5.4); White Blood Count 12.7 K/mm3 (4.4-11.0)
[2025-05-09 22:25] LABS: Mucous, Urine 1+ /hpf (<or=2+); Squamous Epithelial Cells - UA 25-50 SEEN /hpf (5-10)
[2025-05-09 22:28] VITALS: BP 148/90; PULSE 81; RESP 94; TEMP 36.6; O2SAT 22
--- NOTE | 2025-05-09 22:45 | RAD_ITS ---
PROCEDURE: ABDOMEN SINGLE VIEW (PORTABLE) 05/09/2025 REASON FOR EXAM: CONSTIPATION TECHNIQUE: ABDOMEN SINGLE VIEW (PORTABLE) COMPARISON: 01/23/2022 FINDINGS: Normal visualized lung bases. There is an unremarkable bowel gas pattern. There is no demonstrated free abdominal air. Severe fecal stasis is noted. Normal visualized liver. Normal visualized spleen. Normal visualized kidneys. The soft tissue structures of the pelvis are unremarkable. The patient is status post total left hip joint replacement in adequate alignment RAD/Abdomen Single View (Portable) IMPRESSION: Fecal stasis, a component of constipation. Status post total left hip joint replacement. No acute process. Reading Location: [facility]
[2025-05-09 22:58] LABS: Anion Gap 14 (5-15); BUN 15 mg/dL (4-19); BUN/Creat Ratio 23.3 RATIO (10-20); Calcium,Total 9.5 mg/dL (7.6-11.0); Carbon Dioxide 23.7 mmol/L (21.0-32.0); Chloride 100 mmol/L (98-108); Estimated Creatinine Clearance 99.68 ml/min (50-250); Glucose 107 mg/dL (70-99); Potassium 3.9 mmol/L (3.3-5.1)
[2025-05-09 23:26] VITALS: PULSE 87; RESP 20; O2SAT 98
[2025-05-10 01:00] VITALS: BP 146/72; PULSE 77; RESP 18; TEMP 36.7; O2SAT 100
== END 2025-05-10 01:15 | disposition home or self-care (01) ==
PROVIDERS: Emergency Provider Emergency Medicine; PCP Nurse Practitioner Family; Visit Provider Emergency Medicine
DX: K59.00 Constipation, unspecified (principal); N39.0 Urinary tract infection, site not specified; J45.30 Mild persistent asthma, uncomplicated; E03.9 Hypothyroidism, unspecified; E78.5 Hyperlipidemia, unspecified; Z79.890 Hormone replacement therapy; Z96.642 Presence of left artificial hip joint; Z79.899 Other long term (current) drug therapy
CPT/HCPCS: 74018; 80048; 81001; 85025; 87077; 87086; 87088; 87186; 96365; 99284; A4216

== ENCOUNTER 2025-07-07 23:04 | Emergency (ER) | payer BC, SELFPAY ==
[2025-07-07 23:06] VITALS: BP 141/82; PULSE 94; RESP 16; TEMP 36.6; O2SAT 100; BMI 42.2
[2025-07-07] MEDS: 0.9% Normal Saline (1000mL) 1,000 ML 999 ML IV (23:57)
[2025-07-07] MEDS: Ketorolac 30 MG/ML Syringe IV (23:57)
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
[2025-07-08 00:28] LABS: Hematocrit 34.6 % (37-47); Hemoglobin 11.1 g/dL (12.0-15.0); Immature Granulocytes Count 0.070 X10^3/uL (0.0-0.0); Mean Corp Hgb Conc 32.1 g/dL (32-36); Mean Corpuscular Volume 95.8 fL (81-99); Mean Platelet Vol. 10.4 fl (6.2-12.0); NRBC Flagged by Analyzer 0 % (0-5); Platelet Count 328 K/mm3 (150-450); RBC Distribution Width CV 14.1 % (11.6-14.6); RBC Distribution Width SD 50.2 fl (35.1-43.9); Red Blood Count 3.61 M/mm3 (4.2-5.4); White Blood Count 10.5 K/mm3 (4.4-11.0)
[2025-07-08 00:30] LABS: Lipase 50 U/L (13-75); Magnesium 2.1 mg/dL (1.5-2.2)
[2025-07-08 00:37] LABS: AST(SGOT) 49 U/L (<=31); Alanine Aminotransfer ALT/SGPT 30 U/L (<=34); Albumin, Serum 3.9 g/dL (3.4-4.8); Alkaline Phosphatase 89 U/L (35-104); Anion Gap 12 (5-15); BUN 16 mg/dL (4-19); BUN/Creat Ratio 20.6 RATIO (10-20); Bilirubin, Direct < 0.08 mg/dL (0.00-0.30); Calcium,Total 9.2 mg/dL (7.6-11.0); Carbon Dioxide 27.2 mmol/L (21.0-32.0); Chloride 101 mmol/L (98-108); Estimated Creatinine Clearance 86.02 ml/min (50-250); Globulin 3.2 g/dL (2.2-4.2); Glucose 118 mg/dL (70-99); Potassium 3.9 mmol/L (3.3-5.1)
[2025-07-08 01:00] VITALS: BP 114/66; PULSE 90; RESP 16; O2SAT 100
[2025-07-08 02:52] VITALS: BP 138/91; PULSE 84; RESP 19; TEMP 36.6; O2SAT 98
[2025-07-08] MEDS: Electrolyte Solution/Peg's 4000 ML 2000 ML PO (02:53)
--- NOTE | 2025-07-08 23:45 | CT_ITS ---
PROCEDURE: ABDOMEN/PELVIS W IV CONT ONLY 07/08/2025 REASON FOR EXAM: CONSTIPATION VS SBO TECHNIQUE: Procedure Code: [id number] Modality: CT Procedure: ABDOMEN/PELVIS W IV CONT ONLY Coronal and Sagittal reconstruction series were provided. CONTRAST: isovue 370 VOLUME: 100 mL One or more dose reduction techniques were used (e.g., Automated exposure control, adjustment of the mA and/or kV according to patient size, use of iterative reconstruction technique. RADIATION DOSE SUMMARY: CTDI Vol 13.71 mGy DLP :713.64 mGycm FINDINGS: Average sized liver showing homogenous parenchymal attenuation with fatty changes. Cholecystectomy clips. No dilated intra or extra-hepatic biliary tracts. Normal appearance of the pancreas with clear surrounding fat planes. The spleen, adrenal glands and IVC are unremarkable. Vascular atheromatous calcifications. Both kidneys are of average size and showing smooth outline with preserved parenchymal thickness. No renal calculi. Fullness of the urinary collecting systems. Distension of the urinary bladder showing with no obvious masses. No obvious masses related to the pelvic viscera. Dilated parametrial and gonadal veins. The appendix is not identified. Colonic fecal loading. The small bowel loops are unremarkable. The stomach is unremarkable. Epigastric hernia containing omental fat with focal contour bulge of the anterior aspect of the gastric body. No ascites or free air. No obvious pathologically enlarged lymph nodes. Right hip replacement inducing beam hardening artifacts with surrounding right upper thigh subcutaneous and intramuscular air loculi, soft tissue edema and small collections/hematomas. Left hip replacement inducing beam hardening artifacts Thoracolumbar spondylosis. Scanned lung bases show no obvious abnormalities. CT/Abdomen/Pelvis W IV Cont ONLY IMPRESSION: No obvious bowel obstruction. Colonic fecal loading. No acute pelvi-abdominal abnormalities, collections or free air. Right hip replacement induing beam hardening artifacts with surrounding right u pper thigh subcutaneous and intramuscular air loculi, soft tissue edema and small collections/hematomas. Reading [facility]
== END 2025-07-08 03:07 | disposition home or self-care (01) ==
PROVIDERS: Emergency Provider Emergency Medicine; PCP Nurse Practitioner Family; Visit Provider Emergency Medicine
DX: K59.00 Constipation, unspecified (principal); E03.9 Hypothyroidism, unspecified; M79.7 Fibromyalgia; E78.5 Hyperlipidemia, unspecified; Z96.643 Presence of artificial hip joint, bilateral; Z79.890 Hormone replacement therapy; F32.A Depression, unspecified; Z79.899 Other long term (current) drug therapy; K21.9 Gastro-esophageal reflux disease without esophagitis; Z96.619 Presence of unspecified artificial shoulder joint; Z98.51 Tubal ligation status; Z90.49 Acquired absence of other specified parts of digestive tract
CPT/HCPCS: 74177; 80048; 80076; 83690; 83735; 85025; 96361; 96374; 96375; 99285; Q9967; A4216; J2405

== ENCOUNTER 2025-07-11 22:50 | Emergency (ER) | payer BC, SELFPAY ==
[2025-07-11 22:51] VITALS: BP 134/91; PULSE 105; RESP 16; TEMP 36.8; O2SAT 98; BMI 41.2
[2025-07-11 22:53] VITALS: BP 134/91; PULSE 105; RESP 16; TEMP 36.8; O2SAT 98
[2025-07-12] VITALS: BP 128/68; PULSE 85; RESP 16; TEMP 36.6; O2SAT 98
[2025-07-12 00:50] LABS: Mucous, Urine 0 SEEN /hpf (<or=2+)
[2025-07-12 01:00] VITALS: BP 121/73; PULSE 86; RESP 18; TEMP 36.6; O2SAT 97
[2025-07-12 01:00] LABS: Color, Urine Yellow (Yellow); Glucose, Dipstick Normal (Normal); Ketone-Dipstick Negative (Negative); Leukocyte Esterase-Dipstick 500 /ul (Negative); Nitrite-Dipstick Negative (Negative); Occult Blood-Urine 50 /ul (Negative); Protein-Dipstick 15 mg/dl (Negative); Specific Gravity, Urine 1.020 (1.002-1.030); Urine Bilirubin Dipstick Negative (Negative)
[2025-07-12 01:52] LABS: Red Blood Cells-Urine 0-5 SEEN /hpf (0-5); Squamous Epithelial Cells - UA 10-25 SEEN /hpf (5-10)
[2025-07-12 02:00] VITALS: BP 127/70; PULSE 80; RESP 16; TEMP 36.6; O2SAT 100
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
== END 2025-07-12 02:11 | disposition home or self-care (01) ==
PROVIDERS: Emergency Provider Emergency Medicine; Visit Provider Emergency Medicine
DX: N39.0 Urinary tract infection, site not specified (principal); E78.5 Hyperlipidemia, unspecified; M79.7 Fibromyalgia; E03.9 Hypothyroidism, unspecified; Z96.643 Presence of artificial hip joint, bilateral; Z79.890 Hormone replacement therapy; K21.9 Gastro-esophageal reflux disease without esophagitis; Z79.899 Other long term (current) drug therapy; F32.A Depression, unspecified; Z96.619 Presence of unspecified artificial shoulder joint; Z98.51 Tubal ligation status; Z90.49 Acquired absence of other specified parts of digestive tract
CPT/HCPCS: 81001; 87077; 87086; 87088; 87186; 99283

== ENCOUNTER → 2025-08-11 | Outpatient (CLI) | payer BC, SELFPAY ==
[2025-08-11 12:55] LABS: AST(SGOT) 36 U/L (<=31); Alanine Aminotransfer ALT/SGPT 35 U/L (<=34); Albumin, Serum 4.4 g/dL (3.4-4.8); Alkaline Phosphatase 101 U/L (35-104); Anion Gap 12 (5-15); BUN 12 mg/dL (4-19); BUN/Creat Ratio 17.2 RATIO (10-20); Calcium,Total 9.8 mg/dL (7.6-11.0); Carbon Dioxide 25.5 mmol/L (21.0-32.0); Chloride 102 mmol/L (98-108); Cholesterol 311 mg/dL (<=200); Globulin 3.4 g/dL (2.2-4.2); Glucose 89 mg/dL (70-99); Low Density Lipoprotein Calc. 226 mg/dL; Potassium 4.6 mmol/L (3.3-5.1); Triglycerides 219 mg/dL; Very Low Density Lipoprotein 44 mg/dL (5-40); cholesterol:hdl ratio screen 7.64
[2025-08-11 13:00] LABS: CRP 4.25 mg/L (0.0-3.0)
[2025-08-13 09:08] LABS: ANTINUCLEAR ANTIBODIES DIRECT Negative (Negative)
== END | disposition home or self-care (01) ==
LOC: BFHLAB 10:00
PROVIDERS: PCP Nurse Practitioner Family; Visit Provider Nurse Practitioner Family
DX: E03.9 Hypothyroidism, unspecified (principal); M25.50 Pain in unspecified joint; E78.5 Hyperlipidemia, unspecified; I10 Essential (primary) hypertension
CPT/HCPCS: 36415; 80053; 80061; 84439; 84443; 85652; 86038; 86140; 86200; 86431